=== PATIENT | male | born 1965 ===

== ENCOUNTER 2022-09-11 12:44 | Outpatient (REF) | payer OTHER, SELFPAY ==
--- NOTE | ~2022-09-11 | US_ITS ---
EXAMINATION: US RETROPERITONEAL LIMITED (RENAL ONLY) CLINICAL INFORMATION: Calculus of kidney. COMPARISON: None available. TECHNIQUE: Real-time imaging of the kidneys. FINDINGS: RIGHT KIDNEY: 13.3 x 5.3 x 6.1 cm (SAG x AP x TRV). The kidney is normal in size, contour, and echogenicity. Renal cortical thickness is normal. No hydronephrosis. At the interpolar aspect, an 8 mm nonobstructing calculus is seen. At the lower pole, a 1.1 cm nonobstructing calculus is seen. At the upper pole, a 3.5 cm in maximal diameter anechoic, simple cyst is seen. At the lower pole, a 1.3 center in maximal diameter exophytic, simple cyst is seen. LEFT KIDNEY: 12.7 x 5.8 x 4.5 cm (SAG x AP x TRV). The kidney is normal in size, contour, and echogenicity. Renal cortical thickness is normal. No focal parenchymal lesions or hydronephrosis. At the lower pole, a 6 mm nonobstructing calculus is seen. US/US renal BI IMPRESSION: 1. There are nonobstructing bilateral renal calculi, as detailed. No hydronephrosis is seen. 2. There are right renal benign, simple cysts. These requiring no imaging follow-up.
--- NOTE | ~2022-09-11 | XR_ITS ---
EXAMINATION: XR CHEST CLINICAL INFORMATION: Asthma COMPARISON: None available. TECHNIQUE: 2 views of the chest were obtained. FINDINGS: Clear lungs. No effusion or pneumothorax. Cardiomediastinal silhouette is within normal limits. XR/XR chest 2V IMPRESSION: Clear lungs.
--- NOTE | 2022-09-11 14:24 | PFT_ITS ---
INDICATION: Asthma. SPIROMETRY: FEV1 to FVC of 67% prebronchodilators and 73% post bronchodilators with an FEV1 of 1.78 L, which is 52% predicted and an FVC of 2.44 L, which is 56% predicted. There was a significant response to bronchodilators noted and also significant small airways disease noted. Maximum voluntary ventilation only 39% predicted. LUNG VOLUMES: Total lung capacity 74% predicted with a residual volume 130% predicted. DIFFUSION CAPACITY: DLCO 101% predicted. COMPARISONS: None available. INTERPRETATION: There is an obstructive ventilatory defect that appears to be reversible consistent with his diagnosis of asthma. The patient had significant small airway disease suggesting the severity of his asthma and had a very significant response to bronchodilators noted. The patient also has a severe decrease in the maximum voluntary ventilation secondary to deconditioning and also worsening dynamic inspiratory capacity. Lung volumes do demonstrate significant airtrapping due to the asthma and the small airway disease. Diffusion capacity is within normal limits. Clinical correlation warranted. MD SAMY Mei/MODL / [id number]
== END 2022-09-11 12:45 | disposition home or self-care (01) ==
LOC: HO.RESP 12:44
PROVIDERS: PCP Internal Medicine; Visit Provider Internal Medicine
DX: J45.909 Unspecified asthma, uncomplicated (principal); N20.0 Calculus of kidney
CPT/HCPCS: 71046; 76775; 94060; 94727; 94729

== ENCOUNTER 2023-01-22 12:06 | Outpatient (AMB) | payer OTHER, SELFPAY ==
--- NOTE | 2023-01-22 12:08 | A.OFFVIS_ITS ---
Intake Intake Visit Reasons: Calculus of kidney Intake Note: New Patient presents for initial visit kidney stones Urology Medications: none Blood Thinner: none Commercial Litigation Attorney Required: Yes Accompanied by: Spouse Allergies No Known Allergies Allergy (Verified 01/22/23 20:58) Medication List - Last Reconciled 01/22/23 by NURY Park- albuterol sulfate 90 mcg/actuation (Ventolin HFA) 2 puffs inhalation Q6H PRN clotrimazole 1% 1 appl topical BID 4 weeks fluticasone propion-salmeterol 250-50 mcg/dose (Advair Diskus) 1 inh inhalation BID miconazole nitrate 2% (Zeasorb AF) 1 appl topical BID pyridoxine (vitamin B6) 100 mg PO DAILY 90 days HPI HPI Comments History of Present Illness Details Lorne is a very pleasant 57-year-old Albanian-speaking male patient of Dr. Jin who was accompanied by his significant other at today's visit. He presents to the office today as a new patient for nephrolithiasis. In discussion with the patient today he reports to be doing and feeling well. He reports longstanding history of nephrolithiasis however denies any previous surgical intervention for his nephrolithiasis. Recent renal imaging results reviewed with the patient today. Right kidney no hydronephrosis. At the interpolar aspect, an 8 mm nonobstructing calculus is seen. At the lower pole, a 1.1 cm nonobstructing calculus is seen. At the upper pole, a 3.5 cm in maximal diameter anechoic, simple cyst is seen. At the lower pole, a 1.3 center in maximal diameter exophytic, simple cyst is seen. Left kidney with no lesions or hydronephrosis. At the lower pole a 6 cm nonobstructing calculus is seen. Patient reports having passed a stone last week however did not bring into the office today as he did not collect stone. He discusses being employed at [employer]. When asked he reports to be drinking plenty of water daily. He denies any urination issues at this time. When asked he denies urinary urgency, urinary frequency, incontinence, nocturia, hematuria, dysuria, foul smelling urine, changes to urinary stream, flank pain, fever, and or chills. He is happy with his current voiding parameters. Discussed at length potential causes for nephrolithiasis as well as further nephrolithiasis intervention with CT KUB/KUB and or surgical intervention. However, patient reports longstanding history of left urolithiasis and currently denies pain. Will obtain KUB for further assessment evaluation. Discussed ESWL versus ureteroscopy versus surveillance monitoring. Discussed risks and benefits of all asformentioned interventions/treatment options. In office urinalysis results reviewed with the patient and his significant other today. He otherwise offers no other issues or concerns at this time. [facility] Medical History Closed left ankle fracture Renal calculi Family History Mother No problems noted. Father Diabetes Prostate cancer Sister No problems noted. Social History Housing: House Alcohol intake: current Patient Tobacco Use Status: Never used Tobacco e-Cigarette/Vaping Use: Never Used Second Hand Smoke Exposure: No Current occupational status: employed Cognitive needs: No Hearing needs: No Vision needs: Yes Review of Systems Const All systems reviewed & are unremarkable except as noted in HPI and below and Other Reports as per HPI Eyes Reports no additional complaints ENT Reports no additional complaints Card Reports no additional complaints Resp Reports no additional complaints GI Reports no additional complaints Reports as per HPI Musc Reports no additional complaints Neuro Reports no additional complaints Psych Reports no additional complaints Endo Reports no additional complaints Alek/Lymph Reports no additional complaints Aller/Immun Reports no additional complaints Physical Exam Const General: cooperative, healthy appearing, comfortable, no acute distress, well developed, alert and awake Orientation/consciousness: patient oriented x3 Limitations: no limitations HEENT Head: Yes normal to inspection, Yes normocephalic and Yes atraumatic Ears: hearing grossly normal bilaterally Eyes General: appearance normal, both eyes and all related structures Neck Neck: Yes normal visual inspection and Yes trachea midline Chest Chest palpation & inspection: normal inspection of the chest Resp Effort & Inspection: normal respiratory effort and able to speak in complete sentences Cardio Rate: regular rate GI Inspection: Yes normal to inspection General: Yes no CVA tenderness Back/Spine/Pelvis Back: no CVA tenderness Skin General skin exam: no rashes or lesions noted Neuro General: patient oriented x3 Extrem General: Yes normal to inspection Psych Appearance: grossly normal and well kempt Mental Status: mental status grossly normal Speech and movement: Normal speech and movement present and Clear speech present Affect: normal affect Attitude: cooperative Thought process: Normal thought process present Thought content: Normal thought content present Insight: Good insight present (Psych) Judgement: Good judgement present (Psych) Results AMB Urinalysis, Automated UA Leukoctes 0 Santa/uL Last Edit by RadarChile on 01/22/23 12:20 UA Nitrite Last Edit by RadarChile on 01/22/23 12:20 UA Urobilinogen 0.2 mg/dL Last Edit by RadarChile on 01/22/23 12:20 UA Protein 0 mg/dL Last Edit by RadarChile on 01/22/23 12:20 UA pH 6.0 Last Edit by RadarChile on 01/22/23 12:20 UA Blood 200 Madi/uL Last Edit by RadarChile on 01/22/23 12:20 UA Specific [place] 1.020 Last Edit by RadarChile on 01/22/23 12:20 UA Ketone Last Edit by RadarChile on 01/22/23 12:20 UA Bilirubin 0 mg/dL Last Edit by RadarChile on 01/22/23 12:20 UA Glucose 0 mg/dL Last Edit by RadarChile on 01/22/23 12:20 Results Reviewed Results Reviewed: Laboratory Last Values Urine pH (Auto) 6.0 01/22/23 12:14 Specific [place] (Auto) 1.020 01/22/23 12:14 Urine Protein (Auto) 0 mg/dL 01/22/23 12:14 Glucose (UA)(Auto) 0 mg/dL 01/22/23 12:14 Urine Blood (Auto) 200 Madi/uL 01/22/23 12:14 Urine Bilirubin (Auto) 0 mg/dL 01/22/23 12:14 Urine Urobilinogen (Auto) 0.2 mg/dL 01/22/23 12:14 Leukocyte Esterase (Auto) 0 Santa/uL 01/22/23 12:14 Date of Service: 09/11/22 EXAMINATION: US RETROPERITONEAL LIMITED (RENAL ONLY) FINDINGS: RIGHT KIDNEY: 13.3 x 5.3 x 6.1 cm (SAG x AP x TRV). The kidney is normal in size, contour, and echogenicity. Renal cortical thickness is normal. No hydronephrosis. At the interpolar aspect, an 8 mm nonobstructing calculus is seen. At the lower pole, a 1.1 cm nonobstructing calculus is seen. At the upper pole, a 3.5 cm in maximal diameter anechoic, simple cyst is seen. At the lower pole, a 1.3 center in maximal diameter exophytic, simple cyst is seen. LEFT KIDNEY: 12.7 x 5.8 x 4.5 cm (SAG x AP x TRV). The kidney is normal in size, contour, and echogenicity. Renal cortical thickness is normal. No focal parenchymal lesions or hydronephrosis. At the lower pole, a 6 mm nonobstructing calculus is seen. IMPRESSION: ? 1. There are nonobstructing bilateral renal calculi, as detailed. No hydronephrosis is seen. ? 2. There are right renal benign, simple cysts. These requiring no imaging follow-up. Assessment & Plan Assessment & Plan (1) Renal calculi: Comment: Bilateral September 2022 Code(s): N20.0 - Calculus of kidney (2) Renal cyst: Code(s): N28.1 - Cyst of kidney, acquired Plan In office urinalysis results reviewed with the patient today. Recent renal ultrasound results reviewed with the patient and his significant other today; as noted above. Discussed at length potential causes for nephrolithiasis. Discussed surveillance monitoring versus ESWL versus ureteroscopy; discussed risks and benefits of these interventions at length. Discussed near future nephrolithiasis workup to include blood work and 24 hour urine collection. Patient reports to be happy with current voiding parameters Discussed, educated, and stressed the importance of drinking plenty of water daily. Discussed adding 1 oz of lemon juice to water daily. Start vitamin B6 as discussed and prescribed. Will obtain KUB for further assessment evaluation. Follow-up in 1-2 weeks with imaging to be completed prior; or sooner with any issues, concerns, and or questions. Orders: Orders XR KUB Today N20.0 - Calculus of kidney AMB Urinalysis Automated Today Z13.9 - Encounter for screening, unspecified Medications: New pyridoxine (vitamin B6) 100 mg PO DAILY 90 days 90 tabs 3RF N20.0 - Calculus of kidney Patient Instructions: The patient had an opportunity to ask questions regarding the treatment plan. All questions were answered. Physical exam, labs, and imaging were discussed and reviewed in detail. As well as risks, benefits, and discussion of treatment choices. No major barriers to understanding were identified. The patient expressed understanding and agreement with the above treatment plan. The patient was made aware they should contact our office by phone for worsening of their current condition, the appearance of new symptoms, or with any questions or concerns. Compliance is encouraged with any medications and follow up testing that is ordered. It is a privilege to be allowed the opportunity to participate in? your urological care.? Again, if you have any questions or concerns If you have any questions or concerns please do not hesitate to contact me. The office is [phone]. This note is constructed using voice recognition software. While every effort has been made to ensure accuracy receiver errors may have been included. Yours sincerely, FRANSICO Park Coding Level of Care Code New Pt Level 4 (51328) Diagnoses Renal calculi N20.0 Renal cyst N28.1
== END 2023-01-22 13:46 | disposition home or self-care (01) ==
PROVIDERS: PCP Internal Medicine; Visit Provider Nurse Practitioner Family
DX: N20.0 Calculus of kidney (principal); N28.1 Cyst of kidney, acquired
CPT/HCPCS: 99204

== ENCOUNTER 2023-01-22 12:06 | Outpatient (REF) | payer OTHER, SELFPAY ==
--- NOTE | ~2023-01-22 | XR_ITS ---
EXAMINATION: XR ABDOMEN KUB CLINICAL INDICATION: Kidney stone COMPARISON: Previous renal ultrasound September 2022 TECHNIQUE: AP view of the abdomen. FINDINGS: The bowel gas pattern is normal with no evidence of ileus or obstruction. No unusual soft tissue calcifications are noted. The bones are unremarkable. XR/XR KUB IMPRESSION: No stone seen.
== END 2023-01-22 12:07 | disposition home or self-care (01) ==
LOC: HO.XRAY 12:06
PROVIDERS: PCP Internal Medicine; Visit Provider Nurse Practitioner Family
DX: N20.0 Calculus of kidney (principal); N28.1 Cyst of kidney, acquired
CPT/HCPCS: 74018; 81003

== ENCOUNTER 2023-02-02 14:54 | Outpatient (AMB) | payer OTHER, SELFPAY ==
--- NOTE | 2023-02-02 15:01 | MHC.OFFVIS ---
Intake Intake Visit Reasons: Calculus of kidney- follow up/KUB(SET) Intake Note: Patient presents for follow up visit kidney stones/KUB (imaging 01/22/23) Urology Medications: Vitamin B6 Blood Thinner: none Tree Surgeon Required: Yes Accompanied by: Spouse Allergies No Known Allergies Allergy (Verified 02/02/23 15:30) Medication List - Last Reconciled 02/02/23 by AISHA ParkP-ALEJANDRA albuterol sulfate 90 mcg/actuation (Ventolin HFA) 2 puffs inhalation Q6H PRN clotrimazole 1% 1 appl topical BID 4 weeks fluticasone propion-salmeterol 250-50 mcg/dose (Advair Diskus) 1 inh inhalation BID miconazole nitrate 2% (Zeasorb AF) 1 appl topical BID pyridoxine (vitamin B6) 100 mg PO DAILY 90 days HPI HPI Comments History of Present Illness Details Lorne is a very pleasant 57-year-old Amharic-speaking male patient of Dr. Jin who was accompanied by his significant other at today's visit. He presents to the office today for follow-up. Of note, patient was seen approximately 2 weeks ago as a new patient for nephrolithiasis at which time a KUB was ordered for further assessment evaluation. These results were reviewed with the patient and his significant other today. No stones noted. Discussed likelihood of stones being uric in nature as KUB noting no stones and patient with previous renal ultrasound results showing right kidney no hydronephrosis. At the interpolar aspect, an 8 mm nonobstructing calculus is seen. At the lower pole, a 1.1 cm nonobstructing calculus is seen. At the upper pole, a 3.5 cm in maximal diameter anechoic, simple cyst is seen. At the lower pole, a 1.3 center in maximal diameter exophytic, simple cyst is seen. Left kidney with no lesions or hydronephrosis. At the lower pole a 6 cm nonobstructing calculus is seen. Discussed obtaining CT KUB for further assessment versus surveillance monitoring at length. He denies any urination issues at this time. When asked he denies urinary urgency, urinary frequency, incontinence, nocturia, hematuria, dysuria, foul smelling urine, changes to urinary stream, flank pain, fever, and or chills. He is happy with his current voiding parameters. Discussed at length potential causes for nephrolithiasis as well as further nephrolithiasis intervention with CT KUB for possible surgical intervention However, patient reports he will continue with surveillance imaging. In office urinalysis results reviewed with the patient and his significant other today. He otherwise offers no other issues or concerns at this time. [facility] Medical History Closed left ankle fracture Renal calculi Family History Mother No problems noted. Father Diabetes Prostate cancer Sister No problems noted. Social History Housing: House Alcohol intake: current Patient Tobacco Use Status: Never used Tobacco e-Cigarette/Vaping Use: Never Used Second Hand Smoke Exposure: No Current occupational status: employed Cognitive needs: No Hearing needs: No Vision needs: Yes Review of Systems Const All systems reviewed & are unremarkable except as noted in HPI and below and Other Reports as per HPI Eyes Reports no additional complaints ENT Reports no additional complaints Card Reports no additional complaints Resp Reports no additional complaints GI Reports no additional complaints Reports as per HPI Musc Reports no additional complaints Neuro Reports no additional complaints Psych Reports no additional complaints Endo Reports no additional complaints Alek/Lymph Reports no additional complaints Aller/Immun Reports no additional complaints Physical Exam Const General: cooperative, healthy appearing, comfortable, no acute distress, well developed, alert and awake Orientation/consciousness: patient oriented x3 Limitations: no limitations HEENT Head: Yes normal to inspection, Yes normocephalic and Yes atraumatic Ears: hearing grossly normal bilaterally Eyes General: appearance normal, both eyes and all related structures Neck Neck: Yes normal visual inspection and Yes trachea midline Chest Chest palpation & inspection: normal inspection of the chest Resp Effort & Inspection: normal respiratory effort and able to speak in complete sentences Cardio Rate: regular rate GI Inspection: Yes normal to inspection General: Yes no CVA tenderness Back/Spine/Pelvis Back: no CVA tenderness Skin General skin exam: no rashes or lesions noted Neuro General: patient oriented x3 Extrem General: Yes normal to inspection Psych Appearance: grossly normal and well kempt Mental Status: mental status grossly normal Speech and movement: Normal speech and movement present and Clear speech present Affect: normal affect Attitude: cooperative Thought process: Normal thought process present Thought content: Normal thought content present Insight: Good insight present (Psych) Judgement: Good judgement present (Psych) Results AMB Urinalysis, Automated UA Leukoctes 0 Santa/uL Last Edit by Erlinda Bridges on 02/02/23 15:24 UA Nitrite Last Edit by Erlinda Bridges on 02/02/23 15:24 UA Urobilinogen 0.2 mg/dL Last Edit by Erlinda Bridges on 02/02/23 15:24 UA Protein 15 mg/dL Last Edit by Erlinda Bridges on 02/02/23 15:24 UA pH 6.5 Last Edit by Erlinda Bridges on 02/02/23 15:24 UA Blood 25 Madi/uL Last Edit by Erlinda Bridges on 02/02/23 15:24 UA Specific [place] 1.015 Last Edit by Erlinda Bridges on 02/02/23 15:24 UA Ketone Negative Last Edit by Erlinda Bridges on 02/02/23 15:24 UA Bilirubin 0 mg/dL Last Edit by Erlinda Bridges on 02/02/23 15:24 UA Glucose 0 mg/dL Last Edit by Erlinda Bridges on 02/02/23 15:24 Results Reviewed Results Reviewed: Laboratory Last Values Urine pH (Auto) 6.5 02/02/23 15:05 Specific [place] (Auto) 1.015 02/02/23 15:05 Urine Protein (Auto) 15 mg/dL 02/02/23 15:05 Glucose (UA)(Auto) 0 mg/dL 02/02/23 15:05 Urine Ketones (Auto) Negative 02/02/23 15:05 Urine Blood (Auto) 25 Madi/uL 02/02/23 15:05 Urine Bilirubin (Auto) 0 mg/dL 02/02/23 15:05 Urine Urobilinogen (Auto) 0.2 mg/dL 02/02/23 15:05 Leukocyte Esterase (Auto) 0 Santa/uL 02/02/23 15:05 Date of Service: 01/22/23 EXAMINATION: XR ABDOMEN KUB FINDINGS: The bowel gas pattern is normal with no evidence of ileus or obstruction. No unusual soft tissue calcifications are noted. The bones are unremarkable. IMPRESSION: No stone seen. Assessment & Plan Assessment & Plan (1) Renal calculi: Comment: Bilateral September 2022 Code(s): N20.0 - Calculus of kidney (2) Renal cyst: Code(s): N28.1 - Cyst of kidney, acquired Plan In office urinalysis results reviewed with the patient today; as noted above. Recent KUB results reviewed with the patient today; as noted above. Discussed at length possible uric stones as KUB noting no stones Discussed further assessment with CT KUB for further assessment evaluation and possible initiation of potassium citrate if stones are uric in nature. Discussed at length importance of drinking plenty of water daily. Patient denies any bothersome urinary issues or concerns at this time. Will continue with surveillance imaging. CT KUB in 6 months. Will obtain PSA for further assessment evaluation. Follow-up in 6 months with imaging to be completed prior; or sooner with any issues, concerns, and or questions. Orders: Orders Prostate Specific Antigen Scr 08/17/22 N40.0 - Benign prostatic hyperplasia without lower urinary tract symptoms CT kidney stone 6 Months N20.0 - Calculus of kidney AMB Urinalysis Automated 02/02/23 Z13.9 - Encounter for screening, unspecified Patient Instructions: The patient had an opportunity to ask questions regarding the treatment plan. All questions were answered. Physical exam, labs, and imaging were discussed and reviewed in detail. As well as risks, benefits, and discussion of treatment choices. No major barriers to understanding were identified. The patient expressed understanding and agreement with the above treatment plan. The patient was made aware they should contact our office by phone for worsening of their current condition, the appearance of new symptoms, or with any questions or concerns. Compliance is encouraged with any medications and follow up testing that is ordered. It is a privilege to be allowed the opportunity to participate in? your urological care.? Again, if you have any questions or concerns If you have any questions or concerns please do not hesitate to contact me. The office is [phone]. This note is constructed using voice recognition software. While every effort has been made to ensure accuracy air quality manager errors may have been included. Yours sincerely, FRANSICO Park Coding Level of Care Code Est Pt Level 3 (16361) Diagnoses Renal calculi N20.0 Renal cyst N28.1
== END 2023-02-02 15:42 | disposition home or self-care (01) ==
PROVIDERS: PCP Internal Medicine; Visit Provider Nurse Practitioner Family
DX: Z13.9 Encounter for screening, unspecified (principal)
CPT/HCPCS: 99213

== ENCOUNTER → 2023-02-02 14:54 | Outpatient (BNVA) | payer OTHER, SELFPAY | PROVIDERS: PCP Internal Medicine; Visit Provider Nurse Practitioner Family | DX: N20.0 Calculus of kidney (principal); N28.1 Cyst of kidney, acquired | CPT/HCPCS: 81003 ==

== ENCOUNTER 2023-02-27 11:09 | Outpatient (AMB) | payer OTHER, SELFPAY ==
[2023-02-27 11:12] VITALS: BP 129/77; BMI 34.5
--- NOTE | 2023-02-27 11:12 | A.OFFVIS_ITS ---
Intake Vital Signs 02/27/23 11:12 Height 5 ft 6 in Weight 213 lb 13.574 oz BMI 34.5 BP 129/77 Blood Pressure Location Lt brachial Position Sitting Intake Visit Reasons: Colonoscopy Screening Intake Note: Patient presents to in office visit today as a new patient for colonoscopy screening. CC: Patient reports occasional heartburn, he takes Tums for symptoms and this helps per PT. Occasional loose stools if eating greasy foods. Denies other GI symptoms. Winch Operator Required: Yes Winch Operator Name: Accompanied by: Spouse Allergies No Known Allergies Allergy (Verified 02/27/23 11:16) HPI Colonoscopy Screening HPI Details 57 year old? male with past medical hist ory of asthma, renal calculi is here today for pre colonoscopy screening.? Patient was sent to us by his PCP.? This is his first colonoscopy screening.? Patient denies any gastrointestinal symptoms in the past or at present.? Occasional symptoms of acid reflux depending on what he eats. Patient reports that sometimes he will take Tums and his symptoms go away. Patient reports occasional loose stools if he eats something fried or greasy. Otherwise patient moves his bowels regularly. Denies any personal or family history of gastrointestinal disease, colon polyps, or cancer.? Patient never was under anesthesia before.? Negative for history of sleep apnea.? Denies any history of cardiac, renal, pulmonary, or hepatic disease.?? No history of infectious? diseases like hepatitis A, B, C, HIV or tuberculosis.? Patient is not on any anticoagulation therapy. FOR[facility]LY [facility], [facility] Medical History Renal calculi Closed left ankle fracture Family History Mother No problems noted. Father Diabetes Prostate cancer Sister No problems noted. Father Prostate cancer Social History Housing: House Alcohol intake: current Patient Tobacco Use Status: Never used Tobacco e-Cigarette/Vaping Use: Never Used Second Hand Smoke Exposure: No Current occupational status: employed Cognitive needs: No Hearing needs: No Vision needs: Yes Physical Exam Vital Signs: Last Vital Signs BP 129/77 02/27/23 11:12 BMI result Body Mass Index 34.5 Assessment & Plan Assessment & Plan (1) GERD (gastroesophageal reflux disease): Code(s): K21.9 - Gastro-esophageal reflux disease without esophagitis Qualifiers: Esophagitis presence: esophagitis presence not specified Qualified Code(s): K21.9 - Gastro-esophageal reflux disease without esophagitis Plan: Occasional acid reflux without dyspepsia, dysphagia or odynophagia. Patient was encouraged to avoid dietary triggers and late night snacking. Staying upright for minimal 3 hours after meals discussed with patient. Patient reports that his symptoms are only if he eats something spicy. (2) Postprandial diarrhea: Code(s): K52.9 - Noninfective gastroenteritis and colitis, unspecified Plan: Occasional postprandial loose stools depending on what he eats. Patient reports that if he eats something fried sometimes he will have loose stools. Otherwise he is moving his bowels better. Avoid dietary triggers discussed with patient (3) Colon cancer screening: Code(s): Z12.11 - Encounter for screening for malignant neoplasm of colon Plan: Patient denies any cardiac or respiratory symptoms.? However patient has mild inspiratory and expiratory wheeze. He reports that he does not take Advair every day. Patient was instructed to take Advair every day and follow-up with PCP. Patient had pulmonary function test in September. Never had anesthesia in the past. Denies any history of sleep apnea.? No history of infectious diseases in the past or present.? Not on any anticoagulation therapy.? No family or personal history of colon cancer or polyps.? Patient denies melena, hematochezia, unintentional weight loss or ribbon like stools.? Discussed at length the pre- procedure,? prep, diet & medications as well as what to expect prior, during and after the procedure.?? Stressed the importance of good bowel prep. ?Recommended the use of Vaseline or Calmoseptine OTC & baby wipes with bowel movements to promote comfort.? ?Patient verbalizes understanding and agrees to plan of care.? He was given the opportunity to ask questions and all questions answered.? We will see him after the procedure.? Medications: New bisacodyl (Dulcolax (bisacodyl)) take 2 tabs at noon the day before your colonoscopy 10 mg (2 x 5 mg) PO ONCE 1 day 2 tabs 0RF Z12.11 - Encounter for screening for malignant neoplasm of colon polyethylene glycol 3350 (Miralax) As directed by gastroenterology department at [facility] 238 grams PO ONCE 238 grams 0RF Z12.11 - Encounter for screening for malignant neoplasm of colon Coding Level of Care Code New Pt Level 3 (57821) Diagnoses Gastroesophageal reflux disease, unspecified whether esophagitis present K21.9 Esophagitis presence: esophagitis presence not specified Postprandial diarrhea K52.9 Colon cancer screening Z12.11 Time Spent (min) 40 Comment 30 minutes spent with patient and additional 10 minutes spent reviewing his records
== END 2023-02-27 11:56 | disposition home or self-care (01) ==
PROVIDERS: PCP Internal Medicine; Visit Provider Nurse Practitioner Family
DX: K21.9 Gastro-esophageal reflux disease without esophagitis (principal); K52.9 Noninfective gastroenteritis and colitis, unspecified; Z12.11 Encounter for screening for malignant neoplasm of colon
CPT/HCPCS: 99203

== ENCOUNTER → 2023-02-27 11:09 | Outpatient (BNVA) | payer OTHER, SELFPAY | PROVIDERS: PCP Internal Medicine; Visit Provider Nurse Practitioner Family ==

== ENCOUNTER 2023-08-01 16:29 | Outpatient (REF) | payer OTHER, SELFPAY ==
--- NOTE | ~2023-08-01 | CT_ITS ---
EXAMINATION: CT KIDNEY STONE CLINICAL INFORMATION: Renal calculus. COMPARISON: KUB dated 01/22/2023; renal ultrasound dated 09/11/2022. TECHNIQUE: Multidetector volumetric imaging was performed from the superior aspect of the liver through the pubic symphysis. Sagittal and coronal reformatted images were obtained on the technologist's workstation. This CT examination was performed using dose optimization techniques as appropriate, variously including the following: *Automated exposure control *Adjustment of mA and/or kV according to patient size (this includes techniques or standardized protocols for targeted exams where dose is matched to indication/reason for exam; i.e. extremities or head) *Use of iterative reconstruction technique DLP: I 65 mGy-cm FINDINGS: LUNG BASES: There is mild bibasilar linear scar/subsegmental atelectasis. LIVER, GALLBLADDER, AND BILIARY TREE: The liver is normal in size, shape, and attenuation. There are 5 low-attenuation hepatic probable cysts, some too small for full characterization with CT (4:68, 82, 83 and 165). The largest is situated within the left hepatic lobe laterally, measuring 2.8 cm with a postcontrast Hounsfield value of 12.7 units (4:86). No biliary ductal dilatation is present. The gallbladder is unremarkable with no evidence of radiopaque gallstones, gallbladder wall thickening, or obvious pericholecystic inflammatory changes. PANCREAS: Unremarkable. SPLEEN: Unremarkable. ADRENAL GLANDS: Unremarkable. KIDNEYS AND URETERS: The kidneys are normal in size and shape. 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 At the lower pole of the right kidney (3:31), a 7 mm nonobstructing calculus is seen. At the upper pole the right kidney (3:18), a 6 mm nonobstructing calculus is seen. At the lower pole of the right kidney (3:22), a 4 mm nonobstructing calculus is seen. There are a few further 1 mm nonobstructing left renal calculi. No ureteric calculus or hydronephroureter is seen bilaterally. No perinephric stranding. At the upper pole of the right kidney (3:80), a 3.8 cm benign, simple cyst is seen, with postcontrast Hounsfield value of 2.3 units. At the interpolar right kidney (3:22), a 1.4 cm cyst is seen, with precontrast Hounsfield value of 7.7 units. At the lower pole of the right kidney (3:28), a 9 mm exophytic benign, simple cyst is seen, with precontrast Hounsfield value of 3.7 units. These cysts require no imaging follow-up. BLADDER: Unremarkable. GASTROINTESTINAL TRACT: The small and large bowel are unremarkable. The appendix is unremarkable. ABDOMINAL WALL: There is a very small fat-containing umbilical hernia. LYMPH NODES: Normal. VASCULAR: Unremarkable. PELVIC VISCERA: The prostate and seminal vesicles are unremarkable. OSSEOUS STRUCTURES: There is marked anterior endplate arthropathy at T10-T11 and T11-T12. No acute or aggressive osseous finding is noted. CT/CT kidney stone IMPRESSION: 1. There are nonobstructing bilateral renal calculi, as detailed. No ureteric calculus is seen. There is no obstructive uropathy. The urinary bladder is unremarkable. 2. There is increase in echogenicity of bilateral medullary pyramids, which can be seen in association with medullary nephrocalcinosis. 3. No urinary mass is seen. 4. There is a very small fat-containing umbilical hernia. 5. There is marked anterior endplate arthropathy at T10-T11 and T11-T12. No aggressive osseous lesion is seen. Fleischner guidelines were followed.
== END 2023-08-01 16:30 | disposition home or self-care (01) ==
LOC: HO.CT 16:29
PROVIDERS: PCP Internal Medicine; Visit Provider Nurse Practitioner Family
DX: N20.0 Calculus of kidney (principal)
CPT/HCPCS: 74176

== ENCOUNTER 2023-08-08 09:06 | Day surgery (SDC) | payer OTHER, SELFPAY ==
--- NOTE | 2023-08-07 09:54 | HO.ANESPROP2 ---
Documented by User: Bernie Scott NP 08/07/23 09:54 HPI - Anesthesia Eval Consult details Narrative: 57yo M for Colonoscopy FOR[facility]LY [facility] Active Problems Active Problems: All Active Problems (Updated 01/22/23 @ 21:00 by Ifeoma Gonzales [facility]) Renal cyst (Acute) Tinea cruris (Acute) Annual physical exam (Acute) Renal calculi (Acute) Asthma (Acute) Colon cancer screening (Acute) Obesity (BMI 30-39.9) (Acute) Past Medical History Medical History (Updated 08/07/23 @ 12:05 by Summer Ward, ALLEGRA) Asthma Renal calculi Closed left ankle fracture Family History Family History Mother No problems noted. Father Diabetes Prostate cancer Sister No problems noted. Father Prostate cancer Social History Social History Housing: House Alcohol intake: current Alcohol intake frequency: holidays/special occasions only Patient Tobacco Use Status: Never used Tobacco e-Cigarette/Vaping Use: Never Used Second Hand Smoke Exposure: No Use of substances other than those prescribed or required for medical reasons: No Are you DNR?: No Advance Directives: No Advance Directives Information Provided: Yes Current occupational status: employed Cognitive needs: No Hearing needs: No Vision needs: Yes Meds Allergies Allergy/AdvReac Type Severity Reaction Status Date / Time No Known Allergies Allergy Verified 02/27/23 11:16 Assessment and Plan Assessment Anesthesia Assessment: Chart Reviewed Documented by User: Diana Dominguez MD 08/08/23 10:28 [facility] Past Medical History Medical History (Updated 08/07/23 @ 12:05 by Summer Ward RN) Asthma Renal calculi Closed left ankle fracture Family History Family History Mother No problems noted. Father Diabetes Prostate cancer Sister No problems noted. Father Prostate cancer Family history of problems with anesthesia: No Surgical History History of Problems with Anesthesia: No Social History Social History Housing: House Alcohol intake: current Alcohol intake frequency: holidays/special occasions only Patient Tobacco Use Status: Never used Tobacco e-Cigarette/Vaping Use: Never Used Second Hand Smoke Exposure: No Use of substances other than those prescribed or required for medical reasons: No Are you DNR?: No Advance Directives: No Advance Directives Information Provided: Yes Current occupational status: employed Cognitive needs: No Hearing needs: No Vision needs: Yes Meds Allergies Allergy/AdvReac Type Severity Reaction Status Date / Time No Known Allergies Allergy Verified 02/27/23 11:16 Exam Airway Mallampati Class: II TM Dist: >3cm Neck ROM: Full Heart: rrr Lungs: cta Assessment and Plan Assessment Anesthesia Assessment: Anesthesia Plan Discussed Final Anesthetic Review Family History of Problems with Anesthesia: No History of Problems with Anesthesia: No NPO: Yes ASA Class: II Final Preanesthetic Review: No Changes in Pt Med Stat, Meds/Allgs Chart Reviewed and Consent Obtained/Reviewed Patient Risk: Low Procedure Risk: Low Anesthetic Plan Anesthetic Plan: MAC: Disposition: Standard PACU
[2023-08-08 09:46] VITALS: BMI 41.4
[2023-08-08 09:53] VITALS: BMI 33.2
[2023-08-08 09:55] VITALS: BP 141/78; PULSE 100; RESP 18; TEMP 37.2; O2SAT 95
[2023-08-08] MEDS: Albuterol Sulfate (0.083%) 2.5 MG/3 ML VIAL.NEB INHALE (10:16)
--- NOTE | 2023-08-08 10:33 | MHC.SHP ---
Pre-Procedural Eval Section A - 24 Hr Update-Section A only Date of Service: 08/08/23 Section B - Complete if H&P > 30 days Chief Complaint: screening Relevant Family History (Specify if Yes): No Relevant Social History: None Present Medications: see Short Stay Collaborative assessment Medical History: Significant History (Asthma Renal calculi Closed left ankle fracture) History of Previous Operations: Relevant previous surgery/procedure and date(s) Allergies: Allergies Allergy/AdvReac Type Severity Reaction Status Date / Time No Known Allergies Allergy Verified 02/27/23 11:16 Review of Systems Sugical H&P ROS: Negative: Constitution, Cardiovascular, Respiratory, Neurological, Psychiatric, Hem-Onc, Allergic/Immunologic, Gastrointestinal, Genitourinary, Musculoskeletal, Integumentary, Endocrine and Eyes/Ears/Nose/Throat Exam Surgical H&P Exam: Normal: HEENT, Normal: Heart, Normal: Lungs, Normal: Extremities, Normal: Abdomen, Normal: Skin and Normal: Neurological Plan Diagnosis/Plan: Unchanged I have reviewed the history and physical and performed a pertinent physical examination on my patient. No changes have occurred unless specified. Time Spent With Patient Time: Total time managing care of this patient today ____ minutes.
--- NOTE | 2023-08-08 10:34 | P.OP_ITS ---
Operative Note Operative Note Date of Service: 08/08/23 Narrative: Operative Information Procedure Description: Colonoscopy Indication: screening Anesthesia: MAC COLONOSCOPY Instrument: Olympus variable stiffness pediatric scope 190L Colonoscopy Monitoring: Vital signs and clinical assessment, continuous EKG monitoring, Pulse oximetry, Carbon Dioxide monitoring and blood pressure monitoring were done throughout the procedure. Colon withdrawal time was 15 minutes. Procedure: The patient was placed in the left lateral decubitis position and pre-procedure medications were administered. After a digital rectal examination of the ano-rectum, the video colonoscope was inserted into the rectum and advanced through the colon to the cecum/TI. The colonoscope was slowly withdrawn in a retrograde panoramic fashion and the colon mucosa was carefully examined including a retroflexed view of the rectum. Findings and interventions are described below. Procedure Difficulty: moderate Findings: Terminal Ileum-not intubated due to looping Cecum: 3-5 mm sessile polyp removed with cold forceps, 14-15 mm sessile polyp injected with 3-4 ml of eleview and removed with cold snare, 10 mm sessile polyp removed with cold snare Ascending Colon: normal Transverse Colon -normal Descending Colon:normal Sigmoid Colon: normal Rectum: Retroflexion with small internal hemorrhoids seen, grade I Anorectum - normal Colon preparation: [place] Bowel Preparation Scale Right colon; 1-2 Transverse colon: 2 Left colon; 2 (0 = Unprepared colon segment with mucosa not seen due to solid stool that cannot be cleared. 1 = Portion of mucosa of the colon segment seen, but other areas of the colon segment not well seen due to staining, residual stool and/or opaque liquid. 2 = Minor amount of residual staining, small fragments of stool and/or opaque liquid, but mucosa of colon segment seen well. 3 = Entire mucosa of colon segment seen well with no residual staining, small fragments of stool or opaque liquid) Impression and Post Procedure Diagnosis: colon polyps internal hemorrhoids Plan: High fiber diet leaflet Avoid straining at stool, epsom salts and sitz bath, anusol supps or cream Repeat Colonoscopy in 1-2 years due to polyps and fair prep or earlier if clinically indicated Above findings were reviewed with the patient and relevant handouts were provided if indicated.
[2023-08-08] MEDS: Lactated Ringers 1,000 ML 100 ML IVCONT (10:37)
[2023-08-08 11:45] VITALS: BP 102/62; PULSE 94; RESP 16; TEMP 36.6; O2SAT 94
[2023-08-08 12:00] VITALS: BP 102/62; PULSE 90; RESP 16; O2SAT 96
[2023-08-08 12:15] VITALS: BP 119/69; PULSE 85; RESP 17; TEMP 36.6; O2SAT 96
== END 2023-08-08 12:59 | disposition home or self-care (01) ==
PROVIDERS: PCP Internal Medicine; Visit Provider Internal Medicine Gastroenterology
PROC: 0DJD8ZZ Inspection of Lower Intestinal Tract, Via Natural or Artificial Opening Endoscopic (ICD-10-PCS; CPT 45378; principal; 2023-08-08 10:50)
DX: Z12.11 Encounter for screening for malignant neoplasm of colon (principal); D12.0 Benign neoplasm of cecum; K64.0 First degree hemorrhoids; K21.9 Gastro-esophageal reflux disease without esophagitis; K52.9 Noninfective gastroenteritis and colitis, unspecified; J45.909 Unspecified asthma, uncomplicated; Z87.442 Personal history of urinary calculi
CPT/HCPCS: 45385; 45380; 45381; 88305; J2704

== ENCOUNTER → 2023-08-08 09:06 | Outpatient (BNV) | payer OTHER, SELFPAY | PROVIDERS: PCP Internal Medicine; Visit Provider Internal Medicine Gastroenterology | DX: Z12.11 Encounter for screening for malignant neoplasm of colon (principal); K63.5 Polyp of colon; K64.8 Other hemorrhoids | CPT/HCPCS: 45380; 45381; 45385 ==

== ENCOUNTER 2023-08-22 12:15 | Outpatient (AMB) | payer OTHER, SELFPAY ==
--- NOTE | 2023-08-22 12:19 | MHC.OFFVIS ---
Intake Vital Signs 08/22/23 12:22 Height 5 ft 7 in Weight 208 lb BMI 32.6 BP 129/77 Blood Pressure Location Lt brachial Position Sitting Pulse 63 Intake Visit Reasons: s/p colon Intake Note: Patient follow up for Colonoscopy results. Patient cc: constipation on and off, denies any other GI issues. Wheel Presser Required: No Accompanied by: Spouse Allergies No Known Allergies Allergy (Verified 08/22/23 12:19) HPI s/p colon HPI Details LAST VISIT GERD (gastroesophageal reflux disease) Occasional acid reflux without dyspepsia, dysphagia or odynophagia. Patient was encouraged to avoid dietary triggers and late night snacking. Staying upright for minimal 3 hours after meals discussed with patient. Patient reports that his symptoms are only if he eats something spicy. Postprandial diarrhea Occasional postprandial loose stools depending on what he eats. Patient reports that if he eats something fried sometimes he will have loose stools. Otherwise he is moving his bowels better. Avoid dietary triggers discussed with patient Colon cancer screening Patient denies any cardiac or respiratory symptoms.? However patient has mild inspiratory and expiratory wheeze. He reports that he does not take Advair every day. Patient was instructed to take Advair every day and follow-up with PCP. Patient had pulmonary function test in September. Never had anesthesia in the past. Denies any history of sleep apnea.? No history of infectious diseases in the past or present.? Not on any anticoagulation therapy.? No family or personal history of colon cancer or polyps.? Patient denies melena, hematochezia, unintentional weight loss or ribbon like stools.? Discussed at length the pre-procedure,? prep, diet & medications as well as what to expect prior, during and after the procedure.?? Stressed the importance of good bowel prep. ?Recommended the use of Vaseline or Calmoseptine OTC & baby wipes with bowel movements to promote comfort.? ?Patient verbalizes understanding and agrees to plan of care.? He was given the opportunity to ask questions and all questions answered.? We will see him after the procedure.? Plan Medications New bisacodyl (Dulcolax (bisacodyl)) take 2 tabs at noon the day before your colonoscopy 10 mg (2 x 5 mg) PO ONCE 1 day 2 tabs 0RF Z12.11 polyethylene glycol 3350 (Miralax) As directed by gastroenterology department at [facility] 238 grams PO ONCE 238 grams 0RF Z12.11 COLONOSCOPY Findings: Terminal Ileum-not intubated due to looping Cecum: 3-5 mm sessile polyp removed with cold forceps, 14-15 mm sessile polyp injected with 3-4 ml of eleview and removed with cold snare, 10 mm sessile polyp removed with cold snare Ascending Colon: normal Transverse Colon -normal Descending Colon:normal Sigmoid Colon: normal Rectum: Retroflexion with small internal hemorrhoids seen, grade I Anorectum - normal Colon preparation: [place] Bowel Preparation Scale Right colon; 1-2 Transverse colon: 2 Left colon; 2 (0 = Unprepared colon segment with mucosa not seen due to solid stool that cannot be cleared. 1 = Portion of mucosa of the colon segment seen, but other areas of the colon segment not well seen due to staining, residual stool and/or opaque liquid. 2 = Minor amount of residual staining, small fragments of stool and/or opaque liquid, but mucosa of colon segment seen well. 3 = Entire mucosa of colon segment seen well with no residual staining, small fragments of stool or opaque liquid) Impression and Post Procedure Diagnosis: colon polyps internal hemorrhoids Plan: High fiber diet leaflet Avoid straining at stool, epsom salts and sitz bath, anusol supps or cream Repeat Colonoscopy in 1-2 years due to polyps and fair prep or earlier if clinically indicated PATHOLOGY RESULTS Diagnosis Cecum, polypectomies: Fragments of tubular adenomata; negative for high-grade dysplasia or carcinoma. TODAY'S VISIT: Patient is here today for follow-up and to discuss colonoscopy results. Patient reports to have no ill effects from the prep, anesthesia or procedure itself. Patient reports to be feeling well except for constipation. Colonoscopy results and biopsy results discussed with patient. Fragments of tubular adenoma without high-grade dysplasia or carcinoma found. However patient did have suboptimal prep will need to repeat colonoscopy in 1-2 years. Patient denies melena, hematochezia, unintentional weight loss or ribbon like stools. Patient denies any dyspepsia, dysphagia or odynophagia. [facility] Medical History (Updated 08/31/23 @ 21:11 by Marcia Hoang [facility]) Tubular adenoma of colon Asthma Renal calculi Closed left ankle fracture Family History Mother No problems noted. Father Diabetes Prostate cancer Sister No problems noted. Father Prostate cancer Social History Housing: House Alcohol intake: current Alcohol intake frequency: holidays/special occasions only Patient Tobacco Use Status: Never used Tobacco e-Cigarette/Vaping Use: Never Used Second Hand Smoke Exposure: No Current occupational status: employed Cognitive needs: No Hearing needs: No Vision needs: Yes Review of Systems Const Denies weight gain and Denies weight loss ENT Reports no additional complaints, Denies dysphagia and Denies odynophagia Card Reports no additional complaints Resp Reports no additional complaints GI Denies abdominal pain, Denies belching, Denies melena, Denies bloating, Denies change in bowel habits, Reports constipation, Denies dysphagia, Denies excessive flatus, Denies dyspepsia, Denies heartburn, Denies diarrhea, Denies loose stools, Denies nausea, Denies odynophagia and Denies vomiting Reports no additional complaints Musc Reports no additional complaints Neuro Reports no additional complaints Psych Reports no additional complaints Endo Reports no additional complaints Physical Exam Vital Signs: Last Vital Signs Pulse 63 08/22/23 12:22 BP 129/77 08/22/23 12:22 BMI result Body Mass Index 32.6 Const General: healthy appearing and no acute distress Nutritional Appearance: obese Orientation/consciousness: patient oriented x3 Resp Effort & Inspection: normal respiratory effort, able to speak in complete sentences, no tracheal deviation and symmetric chest movement Auscultation: clear to auscultation bilaterally Cardio Rate: regular rate GI Inspection: Yes normal to inspection, No distended and Yes obesity Palpation (GI): Soft to palpation, not firm, nontender and No hepatosplenomegaly present Auscultation: normal bowel sounds General: Yes no CVA tenderness Back/Spine/Pelvis Back: no CVA tenderness Skin General skin exam: elasticity normal, turgor normal and dry skin Neuro General: patient oriented x3 Psych Appearance: grossly normal Mental Status: mental status grossly normal Assessment & Plan Assessment & Plan (1) Tubular adenoma of colon: Code(s): D12.6 - Benign neoplasm of colon, unspecified (2) Constipation: Code(s): K59.00 - Constipation, unspecified Qualifiers: Constipation type: slow transit constipation Qualified Code(s): K59.01 - Slow transit constipation (3) Status post colonoscopy: Code(s): Z98.890 - Other specified postprocedural states Plan Tubular adenoma without high-grade dysplasia or carcinoma found. Patient will need to repeat colonoscopy in 1-2 years. Patient will start taking Dulcolax daily. Patient will call the office if he will continue to be constipated. Patient denies any other GI concerning symptoms. Patient will return to the office in 8 months to discuss going for repeat colonoscopy. He is agreeable to this plan and verbalizes understanding of instructions. He was given the opportunity to ask questions and all questions answered. Thank you for allowing me to participate in his care Medications: New bisacodyl (Dulcolax (bisacodyl)) 10 mg (2 x 5 mg) PO BEDTIME 180 tabs 4RF Coding Level of Care Code Est Pt Level 3 (65067) Diagnoses Tubular adenoma of colon D12.6 Slow transit constipation K59.01 Constipation type: slow transit constipation Status post colonoscopy Z98.890 Time Spent (min) 30 Comment 20 minutes spent with patient and additional 10 minutes spent reviewing his records
[2023-08-22 12:22] VITALS: BP 129/77; PULSE 63; BMI 32.6
== END 2023-08-22 12:45 | disposition home or self-care (01) ==
PROVIDERS: PCP Internal Medicine; Visit Provider Nurse Practitioner Family
DX: D12.6 Benign neoplasm of colon, unspecified (principal); K59.01 Slow transit constipation; Z98.890 Other specified postprocedural states
CPT/HCPCS: 99213

== ENCOUNTER → 2023-08-22 12:15 | Outpatient (BNVA) | payer OTHER, SELFPAY | PROVIDERS: PCP Internal Medicine; Visit Provider Nurse Practitioner Family ==

== ENCOUNTER 2023-09-08 07:20 | Outpatient (REF) | payer OTHER, SELFPAY ==
[2023-09-08 08:54] LABS: Prostate Specific Antigen 0.25 ng/mL (<0.05-4.0)
== END 2023-09-08 07:21 | disposition home or self-care (01) ==
LOC: HO.LAB 07:20
PROVIDERS: PCP Internal Medicine; Visit Provider Nurse Practitioner Family
DX: Z12.5 Encounter for screening for malignant neoplasm of prostate (principal)
CPT/HCPCS: 36415; 84153

== ENCOUNTER 2023-09-10 14:31 | Outpatient (AMB) | payer OTHER, SELFPAY ==
--- NOTE | 2023-09-10 14:54 | MHC.OFFVIS ---
Intake Intake Visit Reasons: 6m/US/PSA Intake Note: Patient presents today for follow up visit kidney stone, psa and ultrasound results Imagin08/01/23 PSA: 0.25 Urology Medications: Vitamin B6 Blood Thinner: none [employer] Internship Required: Yes Accompanied by: Spouse Allergies No Known Allergies Allergy (Verified 09/10/23 20:40) Medication List - Last Reconciled 09/10/23 by FRANSICO Park albuterol sulfate 90 mcg/actuation (Ventolin HFA) 2 puffs inhalation Q6H PRN bisacodyl (Dulcolax (bisacodyl)) 10 mg (2 x 5 mg) PO BEDTIME clotrimazole 1% 1 appl topical BID 4 weeks fluticasone propion-salmeterol 250-50 mcg/dose (Advair Diskus) 1 inh inhalation BID miconazole nitrate 2% (Zeasorb AF) 1 appl topical BID pyridoxine (vitamin B6) 100 mg PO DAILY 90 days HPI HPI Comments History of Present Illness Details Lorne is a very pleasant 57-year-old Maltese-speaking male patient of Dr. Jin who was accompanied by his significant other at today's visit. He has a past medical history of nephrolithiasis and asthma. He presents to the office today for follow-up of his nephrolithiasis. Recent CT KUB results were reviewed with the patient today. The kidneys are normal in size and shape. 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 At the lower pole of the right kidney a 7 mm nonobstructing calculus is seen. At the upper pole of the right kidney a 6 mm nonobstructing calculus is seen. At the lower pole of the right kidney a 4 mm nonobstructing calculus is seen. There are few further 1 mm nonobstructing left renal calculi. No ureteral calculus or hydroureter is seen bilaterally. There are 3.8cm, 1.4cm, and 9mm benign simple appearing cyst that require no imaging follow-up per radiology report. The bladder is unremarkable. He currently denies any bothersome urinary issues or concerns. When asked he denies urinary urgency, urinary frequency, incontinence, nocturia, hematuria, dysuria, foul smelling urine, changes to urinary stream, flank pain, fever, and or chills. He is happy with his current voiding parameters. Discussed at length potential causes for nephrolithiasis as well as further intervention with ureteroscopy verses surveillance monitoring given increased stone burden on right side. In office urinalysis results reviewed with the patient and his significant other today. Recent PSA results reviewed with the patient today 09/25 0.3. He otherwise offers no other issues or concerns at this time. [facility] Medical History Tubular adenoma of colon Asthma Renal calculi Closed left ankle fracture Family History Mother No problems noted. Father Diabetes Prostate cancer Sister No problems noted. Father Prostate cancer Social History Housing: House Alcohol intake: current Alcohol intake frequency: holidays/special occasions only Patient Tobacco Use Status: Never used Tobacco e-Cigarette/Vaping Use: Never Used Second Hand Smoke Exposure: No Current occupational status: employed Cognitive needs: No Hearing needs: No Vision needs: Yes Review of Systems Eyes Reports no additional complaints ENT Reports no additional complaints Card Reports no additional complaints Resp Reports as per HPI GI Reports no additional complaints Reports as per HPI Musc Reports no additional complaints Neuro Reports no additional complaints Psych Reports no additional complaints Endo Reports no additional complaints Alek/Lymph Reports no additional complaints Aller/Immun Reports no additional complaints Physical Exam Const General: cooperative, healthy appearing, comfortable, no acute distress, well developed, alert and awake Orientation/consciousness: patient oriented x3 Limitations: no limitations HEENT Head: Yes normal to inspection, Yes normocephalic and Yes atraumatic Ears: hearing grossly normal bilaterally Eyes General: appearance normal, both eyes and all related structures Neck Neck: Yes normal visual inspection and Yes trachea midline Chest Chest palpation & inspection: normal inspection of the chest Resp Effort & Inspection: normal respiratory effort and able to speak in complete sentences Cardio Rate: regular rate GI Inspection: Yes normal to inspection General: Yes no CVA tenderness Back/Spine/Pelvis Back: no CVA tenderness Skin General skin exam: no rashes or lesions noted Neuro General: patient oriented x3 Extrem General: Yes normal to inspection Psych Appearance: grossly normal and well kempt Mental Status: mental status grossly normal Speech and movement: Normal speech and movement present and Clear speech present Affect: normal affect Attitude: cooperative Thought process: Normal thought process present Thought content: Normal thought content present Insight: Good insight present (Psych) Judgement: Good judgement present (Psych) Results AMB Urinalysis, Automated UA Leukoctes 0 Santa/uL Last Edit by Erlinda Bridges on 09/10/23 15:12 UA Nitrite Negative Last Edit by WishLinkroland Bridges on 09/10/23 15:12 UA Urobilinogen 0.2 mg/dL Last Edit by [email or web address] on 09/10/23 15:12 UA Protein 15 mg/dL Last Edit by [email or web address] on 09/10/23 15:12 UA pH 6.0 Last Edit by [email or web address] on 09/10/23 15:12 UA Blood 10 Madi/uL Last Edit by [email or web address] on 09/10/23 15:12 UA Specific [place] 1.020 Last Edit by Yovigocecilia on 09/10/23 15:12 UA Ketone Negative Last Edit by [email or web address] on 09/10/23 15:12 UA Bilirubin 0 mg/dL Last Edit by Yovigocecilia on 09/10/23 15:12 UA Glucose 0 mg/dL Last Edit by [email or web address] on 09/10/23 15:12 Results Reviewed Results Reviewed: Laboratory Last Values Urine pH (Auto) 6.0 09/10/23 15:01 Specific [place] (Auto) 1.020 09/10/23 15:01 Urine Protein (Auto) 15 mg/dL 09/10/23 15:01 Glucose (UA)(Auto) 0 mg/dL 09/10/23 15:01 Urine Ketones (Auto) Negative 09/10/23 15:01 Urine Blood (Auto) 10 Madi/uL 09/10/23 15:01 Urine Nitrite (Auto) Negative 09/10/23 15:01 Urine Bilirubin (Auto) 0 mg/dL 09/10/23 15:01 Urine Urobilinogen (Auto) 0.2 mg/dL 09/10/23 15:01 Leukocyte Esterase (Auto) 0 Santa/uL 09/10/23 15:01 Date of Service: 08/01/23 EXAMINATION: CT KIDNEY STONE FINDINGS: LUNG BASES: There is mild bibasilar linear scar/subsegmental atelectasis. LIVER, GALLBLADDER, AND BILIARY TREE: The liver is normal in size, shape, and attenuation. There are 5 low-attenuation hepatic probable cysts, some too small for full characterization with CT (4:68, 82, 83 and 165). The largest is situated within the left hepatic lobe laterally, measuring 2.8 cm with a postcontrast Hounsfield value of 12.7 units (4:86). No biliary ductal dilatation is present. The gallbladder is unremarkable with no evidence of radiopaque gallstones, gallbladder wall thickening, or obvious pericholecystic inflammatory changes. PANCREAS: Unremarkable. SPLEEN: Unremarkable. ADRENAL GLANDS: Unremarkable. KIDNEYS AND URETERS: The kidneys are normal in size and shape. 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 At the lower pole of the right kidney (3:31), a 7 mm nonobstructing calculus is seen. At the upper pole the right kidney (3:18), a 6 mm nonobstructing calculus is seen. At the lower pole of the right kidney (3:22), a 4 mm nonobstructing calculus is seen. There are a few further 1 mm nonobstructing left renal calculi. No ureteric calculus or hydronephroureter is seen bilaterally. No perinephric stranding. At the upper pole of the right kidney (3:80), a 3.8 cm benign, simple cyst is seen, with postcontrast Hounsfield value of 2.3 units. At the interpolar right kidney (3:22), a 1.4 cm cyst is seen, with precontrast Hounsfield value of 7.7 units. At the lower pole of the right kidney (3:28), a 9 mm exophytic benign, simple cyst is seen, with precontrast Hounsfield value of 3.7 units. These cysts require no imaging follow-up. BLADDER: Unremarkable. GASTROINTESTINAL TRACT: The small and large bowel are unremarkable. The appendix is unremarkable. ABDOMINAL WALL: There is a very small fat-containing umbilical hernia. LYMPH NODES: Normal. VASCULAR: Unremarkable. PELVIC VISCERA: The prostate and seminal vesicles are unremarkable. OSSEOUS STRUCTURES: There is marked anterior endplate arthropathy at T10-T11 and T11-T12. No acute or aggressive osseous finding is noted. IMPRESSION: 1. There are nonobstructing bilateral renal calculi, as detailed. No ureteric calculus is seen. There is no obstructive uropathy. The urinary bladder is unremarkable. 2. There is increase in echogenicity of bilateral medullary pyramids, which can be seen in association with medullary nephrocalcinosis. 3. No urinary mass is seen. 4. There is a very small fat-containing umbilical hernia. 5. There is marked anterior endplate arthropathy at T10-T11 and T11-T12. No aggressive osseous lesion is seen. Assessment & Plan Assessment & Plan (1) Renal cyst: Code(s): N28.1 - Cyst of kidney, acquired (2) Renal calculi: Comment: Bilateral September 2022 Code(s): N20.0 - Calculus of kidney Plan In office urinalysis results reviewed with the patient today; as noted above. Recent CT KUB results reviewed with the patient today; as noted above. Recent PSA results reviewed with the patient today. Patient currently denies any bothersome urinary issues or concerns. Discussed at length further treatment options with ureteroscopy verses surveillance monitoring with increase in stone burden on right side. Continue vitamin B6 Continue adding 1 oz of lemon juice to water daily. Discussed at length potential causes of nephrolithiasis. Discussed, stress, and educated on the importance of drinking plenty of water daily. Patient is happy with his current voiding parameters. Follow-up in 6 months with imaging to be completed prior; or sooner with any issues, concerns, and or questions. Orders: Orders Prostate Specific Antigen 09/08/23 Z12.5 - Encounter for screening for malignant neoplasm of prostate AMB Urinalysis Automated Today Z13.9 - Encounter for screening, unspecified CT kidney stone 6 Months N20.0 - Calculus of kidney, N28.1 - Cyst of kidney, acquired Patient Instructions: The patient had an opportunity to ask questions regarding the treatment plan. All questions were answered. Physical exam, labs, and imaging were discussed and reviewed in detail. As well as risks, benefits, and discussion of treatment choices. No major barriers to understanding were identified. The patient expressed understanding and agreement with the above treatment plan. The patient was made aware they should contact our office by phone for worsening of their current condition, the appearance of new symptoms, or with any questions or concerns. Compliance is encouraged with any medications and follow up testing that is ordered. It is a privilege to be allowed the opportunity to participate in? your urological care.? Again, if you have any questions or concerns If you have any questions or concerns please do not hesitate to contact me. The office is [phone]. This note is constructed using voice recognition software. While every effort has been made to ensure accuracy director medical writing errors may have been included. Yours sincerely, FRANSICO Park Coding Level of Care Code Est Pt Level 3 (82244) Diagnoses Renal cyst N28.1 Renal calculi N20.0
== END 2023-09-10 15:31 | disposition home or self-care (01) ==
PROVIDERS: PCP Internal Medicine; Visit Provider Nurse Practitioner Family
DX: N28.1 Cyst of kidney, acquired (principal); N20.0 Calculus of kidney
CPT/HCPCS: 99213

== ENCOUNTER → 2023-09-10 14:31 | Outpatient (BNVA) | payer OTHER, SELFPAY | PROVIDERS: PCP Internal Medicine; Visit Provider Nurse Practitioner Family | DX: N20.0 Calculus of kidney (principal); N28.1 Cyst of kidney, acquired | CPT/HCPCS: 81003 ==

== ENCOUNTER 2024-02-27 07:52 | Outpatient (REF) | payer OTHER, SELFPAY ==
--- NOTE | ~2024-02-27 | CT_ITS ---
EXAMINATION: CT ABDOMEN AND PELVIS WITHOUT CONTRAST CLINICAL INFORMATION: Renal cyst. COMPARISON: August 01, 2023. TECHNIQUE: Multidetector volumetric imaging was performed from the superior aspect of the liver through the pubic symphysis. Sagittal and coronal reformatted images were obtained on the technologist's workstation. This CT examination was performed using dose optimization techniques as appropriate, variously including the following: *Automated exposure control *Adjustment of mA and/or kV according to patient size (this includes techniques or standardized protocols for targeted exams where dose is matched to indication/reason for exam; i.e. extremities or head) *Use of iterative reconstruction technique DLP: 541 mGy-cm FINDINGS: LUNG BASES: The visualized lung bases are unremarkable. LIVER, GALLBLADDER, AND BILIARY TREE: The noncontrast liver is normal in size and contour. Scattered hepatic hypodensities incompletely characterized likely representing cysts. No biliary ductal dilatation is present. The gallbladder is contracted. PANCREAS: Unremarkable. SPLEEN: Unremarkable. ADRENAL GLANDS: Unremarkable. KIDNEYS AND URETERS: The kidneys are symmetric in size. Stable right renal cysts requiring no further routine imaging follow-up. There are several nonobstructing bilateral renal calculi. The largest on the right in the lower pole measures 9 mm. The largest on the left in the mid pole measures 5 mm. Stable 7 mm calculus in the vicinity of the distal right ureter. No left ureteral calculus. No hydronephrosis. No perinephric stranding. BLADDER: No bladder calculus. GASTROINTESTINAL TRACT: Small hiatal hernia. Moderate stool throughout the colon. No small bowel obstruction. ABDOMINAL WALL: Small fat-containing umbilical hernia. LYMPH NODES: No bulky lymphadenopathy. VASCULAR: Normal caliber abdominal aorta. PELVIC VISCERA: Unremarkable. OSSEOUS STRUCTURES: No destructive bone lesions. CT/CT kidney stone IMPRESSION: Stable 7 mm calculus in the vicinity of the right distal ureter. Multiple bilateral nonobstructing renal calculi. No hydronephrosis. Electronically signed by: Roshan Davidson MD 02/27/2024 10:41 AM EDT
== END 2024-02-27 07:53 | disposition home or self-care (01) ==
LOC: HO.CT 07:52
PROVIDERS: PCP Internal Medicine; Visit Provider Nurse Practitioner Family
DX: N28.1 Cyst of kidney, acquired (principal); N20.0 Calculus of kidney
CPT/HCPCS: 74176

== ENCOUNTER 2024-03-11 14:21 | Outpatient (AMB) | payer OTHER, SELFPAY ==
--- NOTE | 2024-03-11 14:29 | A.OFFVIS_ITS ---
Intake Visit Reasons: 6m/CT/KUB/PSA(set) Intake Note: Patient presents today for follow up visit kidney stone, psa and ultrasound results Imagin02/27/24 PSA: 0.25 Urology Medications: Vitamin B6 Blood Thinner: none Squad Boss Required: Yes Accompanied by: Spouse Allergies No Known Allergies Allergy (Verified 03/11/24 14:57) Medication List - Last Reconciled 03/11/24 by FRANSICO Park albuterol sulfate 90 mcg/actuation (Ventolin HFA) 2 puffs inhalation Q6H PRN bisacodyl (Dulcolax (bisacodyl)) 10 mg (2 x 5 mg) PO BEDTIME clotrimazole 1% 1 appl topical BID 4 weeks fluticasone propion-salmeterol 250-50 mcg/dose (Advair Diskus) 1 inh inhalation BID miconazole nitrate 2% (Zeasorb AF) 1 appl topical BID pyridoxine (vitamin B6) 100 mg PO DAILY 90 days HPI Comments Details: Lorne is a very pleasant 58-year-old Occitan-speaking male patient of Dr. Jin who was accompanied by his significant other at today's visit. He has a past medical history of nephrolithiasis and asthma. He presents to the office today for follow-up of his nephrolithiasis. Recent CT KUB results were reviewed with the patient today. Symmetrical in size. Stable renal cyst requiring no follow- up imaging per radiology report. There are several nonobstructing bilateral renal calculi. The largest on the right in the lower pole measures 9 mm. The largest on the left in the mid pole measures 5 mm. Stable 7 mm calculus in the vicinity of the distal right ureter. No left ureteral calculus. No hydronephrosis. No perinephric stranding. No bladder calculus. He currently denies any bothersome urinary issues or concerns. When asked he denies urinary urgency, urinary frequency, incontinence, nocturia, hematuria, dysuria, foul smelling urine, changes to urinary stream, flank pain, fever, and or chills. He is happy with his current voiding parameters. Discussed at length potential causes for nephrolithiasis as well as further intervention with ureteroscopy verses surveillance monitoring given increased stone burden on right side. In office urinalysis results reviewed with the patient and his significant other today. PSAs are as follows: PSA 09/25 0.3 He otherwise offers no other issues or concerns at this time. [facility] Medical History Tubular adenoma of colon Asthma Renal calculi Closed left ankle fracture Family History Mother No problems noted. Father Diabetes Prostate cancer Sister No problems noted. Father Prostate cancer Social History Housing: House Alcohol intake: current Alcohol intake frequency: holidays/special occasions only Patient Tobacco Use Status: Never used Tobacco e-Cigarette/Vaping Use: Never Used Second Hand Smoke Exposure: No Current occupational status: employed Cognitive needs: No Hearing needs: No Vision needs: Yes Review of Systems Eyes Reports no additional complaints ENT Reports no additional complaints Card Reports no additional complaints Resp Reports as per HPI GI Reports no additional complaints Reports as per HPI Musc Reports no additional complaints Neuro Reports no additional complaints Psych Reports no additional complaints Endo Reports no additional complaints Alek/Lymph Reports no additional complaints Aller/Immun Reports no additional complaints Physical Exam Const General: cooperative, healthy appearing, comfortable, no acute distress, well developed, alert and awake Orientation/consciousness: patient oriented x3 Limitations: no limitations HEENT Head: Yes normal to inspection, Yes normocephalic and Yes atraumatic Ears: hearing grossly normal bilaterally Eyes General: appearance normal, both eyes and all related structures Neck Neck: Yes normal visual inspection and Yes trachea midline Chest Chest palpation & inspection: normal inspection of the chest Resp Effort & Inspection: normal respiratory effort and able to speak in complete sentences Cardio Rate: regular rate GI Inspection: Yes normal to inspection General: Yes no CVA tenderness Back/Spine/Pelvis Back: no CVA tenderness Skin General skin exam: no rashes or lesions noted Neuro General: patient oriented x3 Extrem General: Yes normal to inspection Psych Appearance: grossly normal and well kempt Mental Status: mental status grossly normal Speech and movement: Normal speech and movement present and Clear speech present Affect: normal affect Attitude: cooperative Thought process: Normal thought process present Thought content: Normal thought content present Insight: Fair insight present (Psych) Judgement: Fair judgement present (Psych) Results AMB Urinalysis, Automated UA Leukoctes 0 Santa/uL Last Edit by Preparis on 03/11/24 14:41 UA Nitrite Last Edit by Preparis on 03/11/24 14:41 UA Urobilinogen 0.2 mg/dL Last Edit by Preparis on 03/11/24 14:41 UA Protein 15 mg/dL Last Edit by Preparis on 03/11/24 14:41 UA pH 7.5 Last Edit by Preparis on 03/11/24 14:41 UA Blood 25 Madi/uL Last Edit by Preparis on 03/11/24 14:41 UA Specific [place] 1.010 Last Edit by Preparis on 03/11/24 14:41 UA Ketone Last Edit by Preparis on 03/11/24 14:41 UA Bilirubin 0 mg/dL Last Edit by Preparis on 03/11/24 14:41 UA Glucose 0 mg/dL Last Edit by Preparis on 03/11/24 14:41 Results Reviewed Results Reviewed: Laboratory Last Values Urine pH (Auto) 7.5 03/11/24 14:40 Specific [place] (Auto) 1.010 03/11/24 14:40 Urine Protein (Auto) 15 mg/dL 03/11/24 14:40 Glucose (UA)(Auto) 0 mg/dL 03/11/24 14:40 Urine Blood (Auto) 25 Madi/uL 03/11/24 14:40 Urine Bilirubin (Auto) 0 mg/dL 03/11/24 14:40 Urine Urobilinogen (Auto) 0.2 mg/dL 03/11/24 14:40 Leukocyte Esterase (Auto) 0 Santa/uL 03/11/24 14:40 Date of Service: 02/27/24 EXAMINATION: CT ABDOMEN AND PELVIS WITHOUT CONTRAST FINDINGS: LUNG BASES: The visualized lung bases are unremarkable. LIVER, GALLBLADDER, AND BILIARY TREE: The noncontrast liver is normal in size and contour. Scattered hepatic hypodensities incompletely characterized likely representing cysts. No biliary ductal dilatation is present. The gallbladder is contracted. PANCREAS: Unremarkable. SPLEEN: Unremarkable. ADRENAL GLANDS: Unremarkable. KIDNEYS AND URETERS: The kidneys are symmetric in size. Stable right renal cysts requiring no further routine imaging follow-up. There are several nonobstructing bilateral renal calculi. The largest on the right in the lower pole measures 9 mm. The largest on the left in the mid pole measures 5 mm. Stable 7 mm calculus in the vicinity of the distal right ureter. No left ureteral calculus. No hydronephrosis. No perinephric stranding. BLADDER: No bladder calculus. GASTROINTESTINAL TRACT: Small hiatal hernia. Moderate stool throughout the colon. No small bowel obstruction. ABDOMINAL WALL: Small fat-containing umbilical hernia. LYMPH NODES: No bulky lymphadenopathy. VASCULAR: Normal caliber abdominal aorta. PELVIC VISCERA: Unremarkable. OSSEOUS STRUCTURES: No destructive bone lesions. IMPRESSION: Stable 7 mm calculus in the vicinity of the right distal ureter. Multiple bilateral nonobstructing renal calculi. No hydronephrosis. Assessment & Plan Assessment & Plan (1) Renal calculi: Comment: Bilateral September 2022 Code(s): N20.0 - Calculus of kidney Category: Medical Plan: Ureteroscopy We discussed the nature of the decision and reasonable alternatives for performing ureteroscopy. Options such as medical therapy were discussed. Interventions include chemical dissolution, ESWL, ureteroscopy with laser lithotripsy and stent placement, PCNL. The relative uncertainties and benefits related to each alternate procedure were adequately discussed. General surgical risks including, but not limited to - pain, bleeding, infection, myocardial infarction, pulmonary embolus, deep vein thrombosis and cerebrovascular accident which may result in further hospitalization were discussed.? Full disclosure of the procedure as well as all major risks, benefits and complications were discussed including but not limited to damage to the urethra, bladder and kidney infection, damage to the ureter, stent migration or malposition, scarring to the renal pelvis, remnant stone fragments, subsequent stone passage with need for secondary procedures. The overall secondary procedure rate is approximately 10-15%.? The overall clearance rate is approximately 90-95%. Success of the procedure in the short-term does not necessarily guarantee that long-term success will be maintained. Suitable follow up will need to be maintained. The patient showed understanding of discussion and wishes to proceed with - cystoscopy, retrograde, ureteroscopy, possible lithotripsy/stone basketing and stent on the right side (2) Renal cyst: Code(s): N28.1 - Cyst of kidney, acquired Category: Medical Plan In office urinalysis results reviewed with the patient today; as noted above. Recent CT KUB results reviewed with the patient today; as noted above. Patient currently denies any bothersome urinary issues or concerns. Discussed at length further treatment options with ureteroscopy verses jimenes rveillance monitoring with increase in stone burden on right side. Continue vitamin B6 Continue adding 1 oz of lemon juice to water daily. Discussed at length potential causes of nephrolithiasis. Discussed, stress, and educated on the importance of drinking plenty of water daily. Patient is happy with his current voiding parameters. Will schedule for right-sided ureteroscopy as discussed. Follow-up per doctor's orders; or sooner with any issues, concerns, and or questions. Orders: Orders AMB Urinalysis Automated Today Z13.9 - Encounter for screening, unspecified Patient Instructions: The patient had an opportunity to ask questions regarding the treatment plan. All questions were answered. Physical exam, labs, and imaging were discussed and reviewed in detail. As well as risks, benefits, and discussion of treatment choices. No major barriers to understanding were identified. The patient expressed understanding and agreement with the above treatment plan. The patient was made aware they should contact our office by phone for worsening of their current condition, the appearance of new symptoms, or with any questions or concerns. Compliance is encouraged with any medications and follow up testing that is ordered. It is a privilege to be allowed the opportunity to participate in? your urological care.? Again, if you have any questions or concerns If you have any questions or concerns please do not hesitate to contact me. The office is [phone]. This note is constructed using voice recognition software. While every effort has been made to ensure accuracy solar energy sales specialist errors may have been included. Yours sincerely, FRANSICO Park Coding Level of Care Code Est Pt Level 4 (64408) Diagnoses Renal calculi N20.0 Renal cyst N28.1
== END 2024-03-11 15:05 | disposition home or self-care (01) ==
PROVIDERS: PCP Internal Medicine; Visit Provider Nurse Practitioner Family
DX: N20.0 Calculus of kidney (principal); N28.1 Cyst of kidney, acquired; Z13.9 Encounter for screening, unspecified
CPT/HCPCS: 99214

== ENCOUNTER → 2024-03-11 14:21 | Outpatient (BNVA) | payer OTHER, SELFPAY | PROVIDERS: PCP Internal Medicine; Visit Provider Nurse Practitioner Family | DX: N20.0 Calculus of kidney (principal); N28.1 Cyst of kidney, acquired | CPT/HCPCS: 81003 ==

== ENCOUNTER 2024-04-22 08:25 | Day surgery (SDC) | payer OTHER, SELFPAY ==
--- NOTE | 2024-04-21 09:12 | HO.ANESPROP2 ---
Documented by User: Bernie Scott NP 04/21/24 09:13 HPI - Anesthesia Eval Consult details Narrative: 58yo M for Right Cystoscopy Ureteroscopy with possible stent placement s/p [place] 08/2023 with TIVA PMFSH Active Problems Active Problems: All Active Problems Tubular adenoma of colon (Acute) Renal cyst (Acute) Tinea cruris (Acute) Annual physical exam (Acute) Asthma (Acute) Colon cancer screening (Acute) Obesity (BMI 30-39.9) (Acute) Renal calculi (Acute) Past Medical History Medical History Tubular adenoma of colon Asthma Renal calculi Closed left ankle fracture Family History Family History Mother No problems noted. Father Diabetes Prostate cancer Sister No problems noted. Father Prostate cancer Family history of problems with anesthesia: No Surgical History Surgical History H/O colonoscopy History of Problems with Anesthesia: No Social History Social History Housing: House Alcohol intake: current Alcohol intake frequency: holidays/special occasions only Patient Tobacco Use Status: Never used Tobacco e-Cigarette/Vaping Use: Never Used Second Hand Smoke Exposure: No Use of substances other than those prescribed or required for medical reasons: No Are you DNR?: No Advance Directives: No Advance Directives Information Provided: Yes Recently lost weight without trying: No Current occupational status: employed Cognitive needs: No Hearing needs: No Vision needs: Yes Meds Allergies Allergy/AdvReac Type Severity Reaction Status Date / Time No Known Allergies Allergy Verified 04/22/24 08:33 Assessment and Plan Assessment Anesthesia Assessment: Chart Reviewed Final Anesthetic Review Family History of Problems with Anesthesia: No History of Problems with Anesthesia: No Documented by User: Angeles Cameron MD 04/22/24 10:37 PMFSH Past Medical History Medical History Tubular adenoma of colon Asthma Renal calculi Closed left ankle fracture Family History Family History Mother No problems noted. Father Diabetes Prostate cancer Sister No problems noted. Father Prostate cancer Surgical History Surgical History H/O colonoscopy Social History Social History Housing: House Alcohol intake: current Alcohol intake frequency: holidays/special occasions only Patient Tobacco Use Status: Never used Tobacco e-Cigarette/Vaping Use: Never Used Second Hand Smoke Exposure: No Use of substances other than those prescribed or required for medical reasons: No Are you DNR?: No Advance Directives: No Advance Directives Information Provided: Yes Recently lost weight without trying: No Current occupational status: employed Cognitive needs: No Hearing needs: No Vision needs: Yes Meds Allergies Allergy/AdvReac Type Severity Reaction Status Date / Time No Known Allergies Allergy Verified 04/22/24 08:33 Exam Airway Mallampati Class: II TM Dist: >3cm Neck ROM: Full Heart: rrr Lungs: cta Assessment and Plan Assessment Anesthesia Assessment: Anesthesia Plan Discussed Final Anesthetic Review NPO: Yes ASA Class: II Final Preanesthetic Review: No Changes in Pt Med Stat, Meds/Allgs Chart Reviewed, Consent Obtained/Reviewed and Anes Risks/Benef Reviewed Patient Risk: Intermediate Procedure Risk: Low Anesthetic Plan Anesthetic Plan: GA Disposition: Standard PACU
[2024-04-22 08:35] VITALS: BMI 32.3
[2024-04-22 08:51] VITALS: BP 168/91; PULSE 81; RESP 15; TEMP 36.9; O2SAT 98
[2024-04-22] MEDS: Lactated Ringers 1,000 ML 100 ML IVCONT (09:01)
--- NOTE | 2024-04-22 10:35 | MHC.SHP ---
Pre-Procedural Eval Section A - 24 Hr Update-Section A only Date of Service: 04/22/24 The patient is an INPATIENT: No The patient has been examined within 24 hours of the surgical procedure. The History & Physical has been completed within 30 days and I have reviewed it.: Yes Section B - Complete if H&P > 30 days Chief Complaint: Calculus of kidney Allergies: Allergies Allergy/AdvReac Type Severity Reaction Status Date / Time No Known Allergies Allergy Verified 04/22/24 08:33 Plan Diagnosis/Plan: Unchanged I have reviewed the history and physical and performed a pertinent physical examination on my patient. No changes have occurred unless specified. Plan for Cystoscopy, right ureteroscopy, possible laser lithotripsy, possible ureteral stent. Risks discussed included but not limited to, possible need to repeat procedure if stone is not completely fragmented, Irritative voiding symptoms, bladder spasms, urgency, blood in urine. Time Spent With Patient Time: Total time managing care of this patient today ____ minutes.
--- NOTE | 2024-04-22 11:49 | P.OP_ITS ---
Operative Note Operative Note Date of Service: 04/22/24 Narrative: PreOperative Diagnosis:?? right ureteral stone Post Operative Diagnosis:?? right ureteral stone Procedure: - Cystoscopy, right retrograde, right ureteroscopy laser lithotripsy stent insertion, 6 Macanese by 22-32 cm Surgeon:?Dr Shari Beckwith Anesthesia:? General Indications for procedure: Lorne is a 58 y/o male with history of nephrolitiasis, he is noted to have multipe right renal and a solitary 7 mm right ureteral stone. Discussed start treatment plan with ureteroscopy laser right ureteral stone. Procedure: After informed consent was verified the patient was brought to the operating placed on the OR table in supine position.? General Anesthesia was administered per protocol.? The patient was placed in lithotomy position, prepped and draped in the usual sterile fashion.? Safety pause time-out and side of surgery confirmed.? Antibiotics confirmed. 2% lidocaine jelly 10 mL was passed transurethrally. A 22 Macanese cystoscope was inserted transurethrally, the bulbous urethra was within normal limits. The prostatic urethra was nonobstructive. The bladder was visualized.? Both ureteric orifices were in normal position. An open-ended ureteral catheter was passed into the right ureteral orifice and a retrograde examination was performed. There was a filling defect in the distal ureter and dilatation proximal to the stone. A guidewire was passed through the ureteral catheter into the kidney. The balloon dilator was passed over the guide-wire the balloon was inflated to 8 mmHg and the intramural ureter was dilated for 30 seconds. The balloon was deflated and removed. After removing the balloon dilator a 2nd guidewire was then passed into the kidney to use as a safety. The cystoscope was removed, leaving both guidewires in place. One guidewire was used as the safety and was attached to the draping. The semi rigid ureteroscope was passed over one of the guidewires to the level of the stone in the ureter. One guidewire was then removed. Laser lithotripsy of the stone was done using the 365 fiber with a alternating pulsating and dusting setting. There was good fragmentation of the stone. The 0 degree basket was passed through the ureteroscope, stone fragment(s) removed and sent for analysis. The ureteroscope was removed. The cystoscope was passed over the safety guidewire. A? 6 Macanese by 22-32 cm stent was placed into the ureter and renal pelvis under a combination of fluoroscopy and direct visualization. The bladder was emptied.? The rigid cystoscope was removed. ?Belladonna suppository was placed per rectum. The patient tolerated the procedure well and was brought to the recovery room in stable condition. The patient will need further treatment for renal calculi. Complications: None EBL: minimal Drains: Ureteral stent as dictated above
[2024-04-22 11:55] VITALS: BP 147/81; PULSE 61; RESP 10; TEMP 36.1; O2SAT 99
[2024-04-22 12:00] VITALS: BP 143/83; PULSE 65; RESP 14; O2SAT 99
[2024-04-22 12:05] VITALS: BP 152/80; PULSE 66; RESP 16; O2SAT 99
[2024-04-22 12:10] VITALS: BP 158/81; PULSE 68; RESP 16; O2SAT 96
[2024-04-22] MEDS: Phenazopyridine HCL 200 MG TABLET PO (12:14)
[2024-04-22 12:25] VITALS: BP 144/81; PULSE 66; RESP 16; TEMP 36.1; O2SAT 95
[2024-04-30 02:13] LABS: Stone Source RIGHT KIDNEY STONE
== END 2024-04-22 13:03 | disposition home or self-care (01) ==
PROVIDERS: PCP Internal Medicine; Visit Provider Urology
PROC: (CPT 52356; principal; 2024-04-22 10:00)
DX: N20.1 Calculus of ureter (principal); Z87.442 Personal history of urinary calculi; N28.1 Cyst of kidney, acquired; J45.909 Unspecified asthma, uncomplicated; Z79.51 Long term (current) use of inhaled steroids; Z79.899 Other long term (current) drug therapy
CPT/HCPCS: 52356; 82365; 88300; C1726; C1758; C1769; C2617; J0690; J2003; J2405; J2704; J3010; Q9967

== ENCOUNTER → 2024-04-22 08:25 | Outpatient (BNV) | payer OTHER, SELFPAY | PROVIDERS: PCP Internal Medicine; Visit Provider Urology | DX: N20.1 Calculus of ureter (principal) | CPT/HCPCS: 52356 ==

== ENCOUNTER 2024-05-21 06:02 | Day surgery (SDC) | payer OTHER, SELFPAY ==
--- NOTE | 2024-05-19 13:38 | HO.ANESPROP2 ---
Documented by User: Bernie Scott NP 05/19/24 13:39 HPI - Anesthesia Eval Consult details Narrative: 58yo M for Right Lithotripsy ESW, possible stent removal s/p cysto etc 04/2024 with GA-LMA 4 PMFSH Active Problems Active Problems: All Active Problems Renal cyst (Acute) Tinea cruris (Acute) Annual physical exam (Acute) Asthma (Acute) Colon cancer screening (Acute) Obesity (BMI 30-39.9) (Acute) Tubular adenoma of colon (Acute) Renal calculi (Acute) Past Medical History Medical History Tubular adenoma of colon Asthma Renal calculi Closed left ankle fracture Family History Family History Mother No problems noted. Father Diabetes Prostate cancer Sister No problems noted. Father Prostate cancer Family history of problems with anesthesia: No Surgical History Surgical History Hx of cystoscopy H/O colonoscopy History of Problems with Anesthesia: No Social History Social History Housing: House Alcohol intake: current Alcohol intake frequency: holidays/special occasions only Patient Tobacco Use Status: Never used Tobacco e-Cigarette/Vaping Use: Never Used Second Hand Smoke Exposure: No Are you DNR?: No Advance Directives: No Advance Directives Information Provided: Yes Current occupational status: employed Cognitive needs: No Hearing needs: No Vision needs: Yes Meds Allergies Allergy/AdvReac Type Severity Reaction Status Date / Time No Known Allergies Allergy Verified 05/21/24 06:31 Assessment and Plan Assessment Anesthesia Assessment: Chart Reviewed Final Anesthetic Review Family History of Problems with Anesthesia: No History of Problems with Anesthesia: No Documented by User: Aparna Shah MD 05/21/24 07:37 [facility] Past Medical History Medical History Tubular adenoma of colon Asthma Renal calculi Closed left ankle fracture Family History Family History Mother No problems noted. Father Diabetes Prostate cancer Sister No problems noted. Father Prostate cancer Surgical History Surgical History Hx of cystoscopy H/O colonoscopy Social History Social History Housing: House Alcohol intake: current Alcohol intake frequency: holidays/special occasions only Patient Tobacco Use Status: Never used Tobacco e-Cigarette/Vaping Use: Never Used Second Hand Smoke Exposure: No Are you DNR?: No Advance Directives: No Advance Directives Information Provided: Yes Current occupational status: employed Cognitive needs: No Hearing needs: No Vision needs: Yes Meds Allergies Allergy/AdvReac Type Severity Reaction Status Date / Time No Known Allergies Allergy Verified 05/21/24 06:31 Exam Airway Mallampati Class: III TM Dist: >3cm Neck ROM: Full Loose/Missing/Broken Teeth: No Heart: RRR Lungs: CTA Assessment and Plan Assessment Anesthesia Assessment: Anesthesia Plan Discussed Final Anesthetic Review NPO: Yes ASA Class: II Final Preanesthetic Review: Meds/Allgs Chart Reviewed, Consent Obtained/Reviewed and Anes Risks/Benef Reviewed Patient Risk: Low Procedure Risk: Low Anesthetic Plan Anesthetic Plan: MAC: Disposition: Standard PACU
[2024-05-21] VITALS (9 sets, daily range): BP systolic 90–144; BP diastolic 43–83; PULSE 61–82; RESP 16–18; TEMP 36.2–37.1; O2SAT 93–99; BMI 32.1
--- NOTE | ~2024-05-21 | XR_ITS ---
EXAMINATION: XR ABDOMEN KUB CLINICAL INDICATION: Right renal stone. COMPARISON: CT kidney stone 02/27/2024. TECHNIQUE: 2 AP views of the abdomen. FINDINGS: Right ureteral stent with proximal end overlying right kidney and distal end overlying the pelvis. Small rounded pelvic calcifications overlying the distal stent may represent bladder calculi or distal right ureteral calculi. Additional small pelvic calcifications, at least some of which are phleboliths. Nonobstructive bowel gas pattern. Large amount of stool throughout the colon. Visualization of the bilateral kidneys is limited due to overlying bowel. Possible right renal calculi difficult to confirm. Multiple calculi overlying the left kidney, largest 5 mm upper pole and 5 mm interpolar region. Degenerative changes in the lumbar spine. XR/XR KUB IMPRESSION: 1. Right ureteral stent with proximal end overlying right kidney and distal end overlying the pelvis. Small rounded pelvic calcifications overlying the distal stent may represent bladder calculi or distal right ureteral calculi. Additional small pelvic calcifications, at least some of which are phleboliths. 2. Nonobstructive bowel gas pattern. Large amount of stool throughout the colon. Visualization of the bilateral kidneys is limited due to overlying bowel. 3. Possible right renal calculi difficult to confirm. 4. Multiple calculi overlying the left kidney, largest 5 mm upper pole and 5 mm interpolar region. This study was presented today to 05/21/2024 for interpretation. Stat results provided at this time as requested by referring provider. Electronically signed by: Holly Clark MD 05/21/2024 08:59 AM [facility]
[2024-05-21] MEDS: Lactated Ringers 1,000 ML 100 ML IVCONT (07:00)
[2024-05-21] MEDS: Albuterol Sulfate (0.083%) 2.5 MG/3 ML VIAL.NEB INHALE (07:17)
[2024-05-21] MEDS: levoFLOXacin 500 MG TABLET PO (07:40)
--- NOTE | 2024-05-21 07:43 | MHC.SHP ---
Pre-Procedural Eval Section A - 24 Hr Update-Section A only Date of Service: 05/21/24 The patient is an INPATIENT: No Changes since office visit: No Cold of Flu in the past 2 weeks, No New Medical Problems, No Changes in Medication and No Patient answered all questions The patient has been examined within 24 hours of the surgical procedure. The History & Physical has been completed within 30 days and I have reviewed it.: Yes Section B - Complete if H&P > 30 days Chief Complaint: Calculus of kidney Details of Present Illness: Prior procedure with right ureteric stone. Here for ESWL of right renal stone and stent removal. Relevant Family History (Specify if Yes): No Relevant Social History: None Present Medications: see Short Stay Collaborative assessment Medical History: No relevant PMH History of Previous Operations: Relevant previous surgery/procedure and date(s) Allergies: Allergies Allergy/AdvReac Type Severity Reaction Status Date / Time No Known Allergies Allergy Verified 05/21/24 06:31 Review of Systems Sugical H&P ROS: Negative: Constitution, Cardiovascular, Respiratory, Neurological, Psychiatric, Hem-Onc, Allergic/Immunologic, Gastrointestinal, Genitourinary, Musculoskeletal, Integumentary, Endocrine and Eyes/Ears/Nose/Throat Plan Diagnosis/Plan: Unchanged I have reviewed the history and physical and performed a pertinent physical examination on my patient. No changes have occurred unless specified. Time Spent With Patient Time: Total time managing care of this patient today ____ minutes.
--- NOTE | 2024-05-21 08:47 | W.PM.OPN ---
Operative Note Operative Note Date of Service: 05/21/24 Narrative: PreOperative Diagnosis: right Renal stones, indwelling stent Post Operative Diagnosis: right Renal stones Procedure: right ESWL, cysto stent removal Surgeon: Dr Arnie Mccurdy Anesthesia: mac/sedation Indications for procedure: The patient understands ESWL may be a staged procedure and subsequent intervention may be required based on imaging after ESWL. Quoted stone clearance rates for a solitary procedure are in the 70-80% range based primarily on stone location. They also understand there is a risk of bleeding to the kidney, infection, damage to adjacent organs, and stone migration following the procedure. - Imaging 9mm right lower pole - and left midpole Procedure optimization has been performed with IV acetaminophen given in the holding area and 1 L of lactated Ringer's to be given in order to optimize the fluid-stone interface. 20 mg of IV Lasix will be given in the last 5 minutes of the procedure to optimize stone clearance. Procedure: After informed consent was verified the patient was brought to the operating room and placed in a supine position. Anesthesia was performed per protocol. Safety pause time-out was performed. Imaging was displayed in the room and laterality confirmed. ESWL was performed. The 1st 500 shocks were performed at 60 hertz. These were performed with increasing power. Once maximum power was reached the rate was increased to 180 hertz. A total of 2500 shocks were given. Targeted imaging with ultrasound/fluoroscopy showed stone smudging suggestive of disintegration. At completion of the procedure cystoscopy was performed. Clean technique use Disposable cystoscope Stent seen emerging from right ureteric orifice was grasped and removed. The patient tolerated the procedure well and was transferred to the recovery area upon completion. Post procedure imaging will be organized. There was no evidence for flank discoloration.
== END 2024-05-21 10:18 | disposition home or self-care (01) ==
PROVIDERS: PCP Internal Medicine; Visit Provider Urology
PROC: (CPT 50590; principal; 2024-05-21 07:30)
DX: N20.0 Calculus of kidney (principal); Z96.0 Presence of urogenital implants; Z87.442 Personal history of urinary calculi; N28.1 Cyst of kidney, acquired; J45.909 Unspecified asthma, uncomplicated; Z79.51 Long term (current) use of inhaled steroids; Z79.899 Other long term (current) drug therapy
CPT/HCPCS: 50590; 52310; 74018; 94640; J1940; J2003; J2250; J2704; J3010

== ENCOUNTER → 2024-05-21 06:02 | Outpatient (BNV) | payer OTHER, SELFPAY | PROVIDERS: PCP Internal Medicine; Visit Provider Urology | DX: N20.0 Calculus of kidney (principal); Z96.0 Presence of urogenital implants | CPT/HCPCS: 50590; 52310 ==

== ENCOUNTER 2024-06-30 08:02 | Outpatient (REF) | payer OTHER, SELFPAY ==
--- NOTE | ~2024-06-30 | US_ITS ---
CLINICAL HISTORY: N20.0 - Calculus of kidney US Renal Comparison: US/AZ/SR - US RENAL BI - 09/11/22 14:08 EDT Findings: the right kidney measures 12.9 x 5.2 x 5.5 cm. Three cysts are noted the largest is seen in the upper pole measuring up to 3.8 cm in greatest diameter. 8 mm calculus is seen in the lower pole. There is no evidence of hydronephrosis. The left kidney measures 12.5 x 5.8 x 3.9 cm. 4.6 mm calculus is seen in the upper pole. 4 mm calculus is seen in the midpole. 4.4 mm calculus is seen in the lower pole. A 2nd calculus is seen in the lower pole measuring 3.6 mm. There is no hydronephrosis. The bladder is not evaluated. IMPRESSION: 1. Left-sided nephrolithiasis without obstructive uropathy. 2. 3 right renal cysts with the largest measuring 3.8 cm and located in the upper pole. 3. Right renal calculus lower pole measuring 8 mm. No evidence of obstructive uropathy. This document has been electronically signed by: Ian Harkins MD on 06/30/2024 11:42:39
== END 2024-06-30 08:03 | disposition home or self-care (01) ==
LOC: HO.US 08:02
PROVIDERS: PCP Internal Medicine; Visit Provider Urology
DX: N20.0 Calculus of kidney (principal)
CPT/HCPCS: 76775

== ENCOUNTER → 2024-06-30 08:04 | Outpatient (BNV) | payer OTHER, SELFPAY | PROVIDERS: PCP Internal Medicine; Visit Provider Radiology Diagnostic Radiology | DX: N20.0 Calculus of kidney (principal); N28.1 Cyst of kidney, acquired | CPT/HCPCS: 76775 ==

== ENCOUNTER 2024-07-15 15:11 | Outpatient (AMB) | payer OTHER, SELFPAY ==
--- NOTE | 2024-07-15 15:29 | A.OFFPC_ITS ---
Vital Signs 07/15/24 15:30 Height 5 ft 7 in Weight 209 lb BMI 32.7 BP 110/76 Blood Pressure Location Lt brachial Position Sitting Pulse 64 Pulse Source Pulse Oximeter Temp 97.3 F Temp Source Skin Pulse Oximetry (%) 94 Oxygen Delivery Method Room Air Intake Visit Reasons: annual exam Intake Note: Patient is here today for a physical. Quill Worker Required: Yes Quill Worker Language: Strap Cutting Machine Operator Name: Deanna (Spouse) Information Interpreted: non-clinical & clinical (pt decline client representative service. Per spouse to translate.) Work Ticket Distributor: Present Accompanied by: Spouse Allergies No Known Allergies Allergy (Verified 07/15/24 15:50) Medication List - Last Reconciled 07/15/24 by Oxana Al PA-C albuterol sulfate 90 mcg/actuation (Ventolin HFA) 2 puffs inhalation Q6H PRN pyridoxine (vitamin B6) 100 mg PO DAILY 90 days Tobacco use date assessed: 07/15/24 Dental Screening Dental Screen Date: 07/15/24 Did you have a dental visit in the last 12 months?: Yes Did you have a dental problem in the last 6 months where you did not have access to dental care?: No Was dental information given to patient?: Patient has dentist HPI annual exam HPI Details 58-year-old male with past medical histo ry obesity, asthma, renal calculi last seen 11/2022 coming in for annual exam.? In review of the notes, patient was seen by Urology 03/11/2024 scheduled for right-sided ureteroscopy which was completed 06/30/2024 and will have follow up in August. Patient presents today with his spouse who provides translation to the duration of this appointment. Formal translation was declined today. Patient tells us today he has been out of the albuterol for the past several weeks. He has been using the albuterol 3-4x per week and having coughing fits often. Denies any nighttime awakenings. No acute concerns today. Colonoscopy: completed 08/08/2023 repeat colonoscopy in 1-2 years. settlement clerk walking. Vax: flu not up to date, Td up to date. PFSH Medical History Tubular adenoma of colon Asthma Renal calculi Closed left ankle fracture Surgical History Hx of cystoscopy H/O colonoscopy Family History Mother No problems noted. Father Diabetes Prostate cancer Sister No problems noted. Father Prostate cancer Social History Housing: House Alcohol intake: current Alcohol intake frequency: holidays/special occasions only Patient Tobacco Use Status: Never used Tobacco e-Cigarette/Vaping Use: Never Used Second Hand Smoke Exposure: No service: No Current occupational status: employed Cognitive needs: No Hearing needs: No Vision needs: Yes Questionnaire PHQ-9 Over the last 2 weeks, how often have you been bothered by any of the following problems? 1. Little interest or pleasure in doing things: not at all 2. Feeling down, depressed, or hopeless: not at all 3. Trouble falling or staying asleep, or sleeping too much: not at all 4. Feeling tired or having little energy: not at all 5. Poor appetite or overeating: not at all 6. Feeling bad about yourself - or that you are a failure or have let yourself or your family down: not at all 7. Trouble concentrating on things, such as reading the newspaper or watching television: not at all 8. Moving or speaking so slowly that other people could have noticed. Or the opposite - being so fidgety or restless that you have been moving around a lot more than usual: not at all 9. Thoughts that you would be better off or of hurting yourself in some way: not at all Total score: 0 Depression Screening Interpretation: Negative Depression Screening Done: Yes Source: Developed by Drs. Gumaro Maldonado, Veronica Love, Blaise Humphrey and colleagues, with an educational eric from [employer]. Thrive Questionnaire Date Thrive assessed: 07/15/24 I am a: Patient What is your living situation today?: I have a steady place to live Within the past 12 months, did the food you bought not last and you didn't have the money to get more?: Never true Within the past 12 months, did you worry whether your food would run out before you got money to buy more?: Never true Do you have trouble paying for medicines?: No Do you have trouble getting transportation to medical appointments?: No Do you have trouble paying your heating and electricity bill?: No Do you have trouble taking care of your child, family member or friend?: No Do you have trouble with day-to-day activities such as bathing, preparing meals, shopping, managing finances, etc.?: No Are you currently unemployed and looking for a job?: No Are you interested in more education?: No Please select the resources that you would like help with: None Currently or been in a relationship where the following occur: No concerns reported THRIVE Score: 0 AUDIT C Alcohol Use Questionnaire (AUDIT-C) 1. How often do you have a drink containing alcohol?: Monthly or less 2. How many drinks containing alcohol do you have on a typical day when you are drinking?: 1 or 2 Total Score: 1 TYE-7 AMB Questionnaire TYE-7 Date TYE - 7 assessed: 07/15/24 Feeling nervous, anxious, or on edge: 0 = Not at all Not being able to stop or control worryin = Not at all Worrying too much about different things: 0 = Not at all Trouble relaxin = Not at all Being so restless that it is hard to sit still: 0 = Not at all Becoming easily annoyed or irritable: 0 = Not at all Feeling afraid as if something awful might happen: 0 = Not at all Total TYE-7 score (0-4 normal; 5-9 mild; 10-14 moderate; 15-21 severe): 0 Source: Developed by Drs. Gumaro Maldonado, Veronica Love, Blaise Humphrey and colleagues, with an educational eric from [employer]. Review of Systems Const Denies body aches, Denies fatigue, Denies fever(s), Denies frequent falls, Denies headache(s) and Denies weakness Eyes Reports no additional complaints and Denies change in vision ENT Denies dysphagia, Denies dizziness, Denies facial pain, Denies headache(s) and Denies odynophagia Card Denies chest pain, Denies syncope, Denies irregular heart rhythm, Denies leg edema, Denies lightheadedness and Denies dyspnea Resp Denies cough and Denies dyspnea GI Denies abdominal pain, Denies constipation, Denies dysphagia, Denies dyspepsia, Denies diarrhea, Denies nausea, Denies odynophagia and Denies vomiting Denies dysuria, Denies urinary frequency, Denies urinary hesitancy and Denies urinary urgency Musc Denies back pain and Denies myalgias Skin/Breast Reports system reviewed and no additional complaints, except as documented Neuro Denies dizziness, Denies syncope, Denies frequent falls, Denies headache(s) and Denies weakness Psych Reports no additional complaints Endo Denies fatigue Physical exam (Primary Care) Vital Signs: Last Vital Signs Temp 97.3 F 07/15/24 15:30 Pulse 64 07/15/24 15:30 BP 110/76 07/15/24 15:30 Pulse Ox 94 07/15/24 15:30 Oxygen Delivery Method Room Air 07/15/24 15:30 BMI result Body Mass Index 32.7 BMI Assessment/Plan discussion: High BMI High, discussed plan: lifestyle, dietary and physical activity Tobacco/Smoking Status: Tobacco use Status Tobacco use date assessed 07/15/24 07/15/24 15:37 Patient Tobacco Use Status Never used Tobacco 07/15/24 15:37 e-Cigarette/Vaping Use Never Used 07/15/24 15:37 PHQ-9: PHQ-9 Score PHQ-9: Total score 0 07/15/24 16:09 Depression Screening Interpretation: Negative Thrive Assessment: Date of Thrive Assessment Date Thrive assessed 07/15/24 07/15/24 15:37 Currently or been in a relationship where the following occur: No concerns reported Const General: cooperative, healthy appearing, comfortable and no acute distress Orientation/consciousness: patient oriented x3 HENMT Head: Yes normocephalic Ears: hearing grossly normal bilaterally, external ears normal, TM's normal bilaterally and EAC's normal General nose exam: Normal external nose present Face and sinus: Yes normal facial exam and Yes sinuses nontender Mouth: Normal oral and palatal mucosa present and tongue normal Throat: Yes posterior oropharynx normal Eyes General: appearance normal, both eyes and all related structures Conjunctivae: conjunctivae normal Pupils: Equal, round and reactive pupils present EOM: EOMs intact bilaterally and No Nystagmus present Neck Neck: Yes normal visual inspection, Yes full ROM and Yes no lymphadenopathy Chest Chest palpation & inspection: normal inspection of the chest Resp Effort & Inspection: normal respiratory effort Auscultation: clear to auscultation bilaterally, no crackles, no rales, no rhonchi, no wheezes and breath sounds present Cardio Rate: regular rate Rhythm: regular rhythm Peripheral pulses: radial pulses present and dorsalis pedis present GI Inspection: Yes normal to inspection and No Abdominal wall edema Palpation (GI): Soft to palpation, not firm and nontender Auscultation: normal bowel sounds Rectal Exam - Male: Yes deferred General: Yes no CVA tenderness Back/Spine/Pelvis Back: no CVA tenderness Skin General skin exam: no rashes or lesions noted Neuro General: patient oriented x3 Cranial nerves: Yes Equal, round and reactive pupils present, Yes Midline tongue present, Yes Ability to bilaterally elevate shoulders present and No Nystagmus present Gait exam (Neuro): Normal gait present Extrem General: Yes normal to inspection, Yes full ROM, No no pedal edema and No edema Psych Speech and movement: Normal speech and movement present Affect: normal affect Insight: Good insight present (Psych) Judgement: Good judgement present (Psych) Office Procedures Flu Questionnaire Does the patient have a severe egg allergy?: No Does the patient have severe life threatening allergies?: No Does the patient have a fever or illness today?: No Has the patient ever had Guillain-Bud Syndrome?: No Has the patient ever had any past reaction to a flu shot?: No Immunizations Fluarix Triv [id number] (PF) 45 mcg (15 mcg x 3)/0.5 mL IM syringe Performing Provider: Oxana Al PA-C [place] [facility] [place] [facility] Administered by: Desirae King LPN on 07/15/24 16:08 Dose Route Admin Location Dispensed Lot Number Expiration Date [facility] Stunt Man 0.5 mL IM Left Deltoid 0.5 mL [id number] 12/01/24 [id number] [employer] VIS Given Date VIS Provided VIS Publication Date 07/15/24 Single Vaccine 21 Eligibility Eligibility Date Funding Source Not [facility] Eligible 07/15/24 Private Coding Level of Care Code Est Pt Prev Care 40-64y(47862) Diagnoses Annual physical exam Z00.00 Mild intermittent asthma, unspecified whether complicated J45.20 Asthma severity: mild Asthma persistence: intermittent Asthma complication type: unspecified Obesity (BMI 30-39.9) E66.9 Tubular adenoma of colon D12.6 Renal calculi N20.0 Renal cyst N28.1 Screening for hypercholesterolemia Z Assessment & Plan Assessment & Plan (1) Annual physical exam: Code(s): Z00.00 - Encounter for general adult medical examination without abnormal findings Category: Medical Plan: Routine blood work is scheduled to monitor diabetes, prostate health, and overall health markers. The patient received the influenza vaccine and is advised to procure the COVID-19 vaccine from a pharmacy location. Follow-up is scheduled in six weeks to assess asthma management efficacy and review laboratory findings. (2) Asthma: Comment: PFT September 2022 Code(s): J45.909 - Unspecified asthma, uncomplicated Category: Medical Qualifiers: Asthma severity: mild Asthma persistence: intermittent Asthma complication type: unspecified Qualified Code(s): J45.20 - Mild intermittent asthma, uncomplicated Plan: Asthma not currently controlled on albuterol monotherapy. Plan to add inhaled corticosteroid to medication regimen. Avoid triggers such as allergies and smoking. Modification of current asthma management is necessary given the frequent use of albuterol inhaler, necessitating the introduction of a daily inhaled corticosteroid, following insurance confirmation. Proper mouth rinsing post use is advised to mitigate potential complications. Follow up in 6 weeks (3) Obesity (BMI 30-39.9): Code(s): E66.9 - Obesity, unspecified Category: Medical Plan: Healthy diet and regular exercise is encouraged. (4) Tubular adenoma of colon: Code(s): D12.6 - Benign neoplasm of colon, unspecified Category: Medical Plan: Repeat colonoscopy in 1-2 years, continue to follow with GI. (5) Renal calculi: Comment: Bilateral September 2022, extraction April 2024 Code(s): N20.0 - Calculus of kidney Category: Medical Plan: Continue to follow with Urology. Stay well hydrated. (6) Renal cyst: Code(s): N28.1 - Cyst of kidney, acquired Category: Medical Plan: Continue to follow with Urology has been monitoring this. (7) Screening for hypercholesterolemia: Code(s): Z13. - Encounter for screening for lipoid disorders Category: Medical Plan: Ordered updated blood work. Plan Patient was informed and verbally consented to the use of an ambient scribe for clinic note documentation during this visit. This note was constructed using voice recognition software. While every effort has been made to ensure accuracy and prosthetic technician, still areas may have been included sometimes these areas may affect the content or meeting of the given symptoms. Total time spent caring for the patient today was thirty minutes. This includes time spent before the visit reviewing the chart, time spent during the visit, and time spent after the visit and documentation. Orders: Orders Complete Blood Count Auto Diff Today Z00.00 - Encounter for general adult medical examination without abnormal findings Free T4 (Free Thyroxine) Today Z00.00 - Encounter for general adult medical examination without abnormal findings Vitamin B12 and Folate Today Z00.00 - Encounter for general adult medical examination without abnormal findings Lipid Panel Today Z13.220 - Encounter for screening for lipoid disorders Comprehensive Met. Panel Today Z00.00 - Encounter for general adult medical examination without abnormal findings TSH reflex Free T4 Today Z00.00 - Encounter for general adult medical examination without abnormal findings PSA, Ultra Sensitive Today Z00.00 - Encounter for general adult medical examination without abnormal findings Vitamin D 25-OH Total Today Z00.00 - Encounter for general adult medical examination without abnormal findings Influenza [id number] Immunization Today Z23 - Encounter for immunization Medications: New budesonide 90 mcg/actuation (Pulmicort Flexhaler) 1 inh inhalation BID 1 ea 1RF Refilled albuterol sulfate 90 mcg/actuation (Ventolin HFA) 2 puffs inhalation Q6H PRN 8.5 grams 2RF bronchospasm J45.909 - Unspecified asthma, uncomplicated
[2024-07-15 15:30] VITALS: BP 110/76; PULSE 64; TEMP 36.3; O2SAT 94; BMI 32.7
== END 2024-07-15 16:13 | disposition home or self-care (01) ==
PROVIDERS: PCP Internal Medicine
DX: Z00.00 Encounter for general adult medical examination without abnormal findings (principal); J45.20 Mild intermittent asthma, uncomplicated; E66.9 Obesity, unspecified; Z68.32 Body mass index [BMI] 32.0-32.9, adult; D12.6 Benign neoplasm of colon, unspecified; N20.0 Calculus of kidney; N28.1 Cyst of kidney, acquired; Z13.220 Encounter for screening for lipoid disorders; Z23 Encounter for immunization

== ENCOUNTER → 2024-07-15 15:11 | Outpatient (BNVA) | payer OTHER, SELFPAY | PROVIDERS: PCP Internal Medicine | DX: Z00.00 Encounter for general adult medical examination without abnormal findings (principal); Z23 Encounter for immunization; J45.20 Mild intermittent asthma, uncomplicated; E66.9 Obesity, unspecified; Z68.32 Body mass index [BMI] 32.0-32.9, adult; N20.0 Calculus of kidney; N28.1 Cyst of kidney, acquired; Z86.0101 Personal history of adenomatous and serrated colon polyps | CPT/HCPCS: 90471; 90656; 96127 ==

== ENCOUNTER 2024-08-15 06:17 | Outpatient (REF) | payer OTHER, SELFPAY ==
[2024-08-15 06:42] LABS: MANUAL DIFF FLAG NO
[2024-08-15 07:27] LABS: Basophils Percent Auto 0.6 % (0-2); Eosinophils Absolute Auto 0.4 X10*3/uL (0.0-0.4); Eosinophils Percent Auto 7.8 % (0-4); Hematocrit 41.4 % (42.0-52.0); Imm Gran Abs Auto 0.01 X10*3/uL (0.00-0.03); Imm Gran Pct Auto 0.2 % (0.0-0.4); Lymphocytes Percent Auto 39.1 % (20-40); Mean Corpuscular HGB Conc 33.8 g/dl (31.0-36.0); Mean Corpuscular Hemoglobin 29.2 pg (27.0-33.0); Mean Corpuscular Volume 86.4 fL (80.0-98.0); Mean Platelet Volume 10.9 fL (9.4-12.4); Monocytes Absolute Auto 0.7 X10*3/uL (0.1-1.2); Monocytes Percent Auto 13.2 % (2-11); Neutrophils Percent Auto 39.1 % (45-73); Platelet Count 243 X10*3/uL (160-400); Red Blood Count 4.79 X10*6/uL (4.60-5.80); Red Cell Distribution Width 14.1 % (11.0-16.0)
[2024-08-15 08:01] LABS: Alanine Aminotransferase 20 U/L (0-40); Albumin Level 4.3 g/dL (3.5-5.0); Alkaline Phosphatase 85 U/L (39-117); Anion Gap 12 (12-20); Aspartate Amino Transferase 43 U/L (5-37); Bilirubin Total 0.7 mg/dL (0.0-1.0); Blood Urea Nitrogen 17 mg/dL (9-16); Calcium 9.4 mg/dL (8.4-10.2); Carbon Dioxide 27 mmol/L (22-29); Chloride 107 mmol/L (96-108); Cholesterol 159 mg/dL (<200); Estimated Glomerular Filt Rate > 60; Glucose Random 87 mg/dL (60-115); HDL Cholesterol 48 mg/dL (>40); LDL Cholesterol Calculated 102 mg/dL (<100); Potassium 4.4 mmol/L (3.3-5.1); Sodium 142 mmol/L (135-145); Total Protein 7.4 g/dL (6.5-8.0); Triglycerides 46 mg/dL (<150)
[2024-08-15 08:10] LABS: Free T4 (Free Thyroxine) 1.09 ng/dL (0.71-1.85); TSH reflex Free T4 1.81 uIU/mL (0.32-4.0); Vitamin D 25-OH Total 14.1 ng/mL (>30)
[2024-08-15 08:26] LABS: Folate 14.1 ng/mL (> or = 4.0); Vitamin B12 347 pg/mL (200-900)
[2024-08-19 19:09] LABS: PSA, Ultra Sensitive 0.25 ng/mL
== END 2024-08-15 06:18 | disposition home or self-care (01) ==
LOC: HO.LAB 06:17
PROVIDERS: PCP Internal Medicine
DX: Z00.00 Encounter for general adult medical examination without abnormal findings (principal); Z13.220 Encounter for screening for lipoid disorders; Z12.5 Encounter for screening for malignant neoplasm of prostate
CPT/HCPCS: 36415; 80053; 80061; 82306; 82607; 82746; 84153; 84439; 84443; 85025

== ENCOUNTER 2024-08-18 14:37 | Outpatient (AMB) | payer OTHER, SELFPAY ==
[2024-08-18 14:48] VITALS: BP 100/62; PULSE 71; O2SAT 93; BMI 32.8
--- NOTE | 2024-08-18 14:48 | A.OFFPC_ITS ---
Vital Signs 08/18/24 14:48 Height 5 ft 7 in Weight 209 lb 6 oz BMI 32.8 BP 100/62 Blood Pressure Location Lt brachial Position Sitting Pulse 71 Pulse Source Pulse Oximeter Pulse Oximetry (%) 93 Oxygen Delivery Method Room Air Intake Visit Reasons: 6 week f/u Field Director Required: No Accompanied by: Self / Same As Patient Allergies No Known Allergies Allergy (Verified 08/18/24 14:48) Medication List - Last Reconciled 08/18/24 by Diogenes Jin MD albuterol sulfate 90 mcg/actuation (Ventolin HFA) 2 puffs inhalation Q6H PRN budesonide 90 mcg/actuation (Pulmicort Flexhaler) 1 inh inhalation BID montelukast (Singulair) 10 mg PO BEDTIME pyridoxine (vitamin B6) 100 mg PO DAILY 90 days Tobacco use date assessed: 08/18/24 Dental Screening Dental Screen Date: 08/18/24 Did you have a dental visit in the last 12 months?: Yes Did you have a dental problem in the last 6 months where you did not have access to dental care?: No Was dental information given to patient?: Patient has dentist [facility] Medical History (Updated 08/18/24 @ 15:18 by Diogenes Jin MD) Tubular adenoma of colon Asthma Renal calculi Closed left ankle fracture Surgical History Hx of cystoscopy H/O colonoscopy Family History Mother No problems noted. Father Diabetes Prostate cancer Sister No problems noted. Father Prostate cancer Social History Housing: House Alcohol intake: current Alcohol intake frequency: holidays/special occasions only Patient Tobacco Use Status: Never used Tobacco e-Cigarette/Vaping Use: Never Used Second Hand Smoke Exposure: No service: No Current occupational status: employed Cognitive needs: No Hearing needs: No Vision needs: Yes Questionnaire PHQ-9 Over the last 2 weeks, how often have you been bothered by any of the following problems? 1. Little interest or pleasure in doing things: not at all 2. Feeling down, depressed, or hopeless: not at all 3. Trouble falling or staying asleep, or sleeping too much: not at all 4. Feeling tired or having little energy: not at all 5. Poor appetite or overeating: not at all 6. Feeling bad about yourself - or that you are a failure or have let yourself or your family down: not at all 7. Trouble concentrating on things, such as reading the newspaper or watching television: not at all 8. Moving or speaking so slowly that other people could have noticed. Or the opposite - being so fidgety or restless that you have been moving around a lot more than usual: not at all 9. Thoughts that you would be better off or of hurting yourself in some way: not at all Total score: 0 Depression Screening Interpretation: Negative Depression Screening Done: Yes Source: Developed by Drs. Gumaro Maldonado, Veronica Love, Blaise Humphrey and colleagues, with an educational eric from [employer]. Thrive Questionnaire Date Thrive assessed: 08/18/24 I am a: Patient What is your living situation today?: I have a steady place to live Within the past 12 months, did the food you bought not last and you didn't have the money to get more?: Never true Within the past 12 months, did you worry whether your food would run out before you got money to buy more?: Never true Do you have trouble paying for medicines?: No Do you have trouble getting transportation to medical appointments?: No Do you have trouble paying your heating and electricity bill?: No Do you have trouble taking care of your child, family member or friend?: No Do you have trouble with day-to-day activities such as bathing, preparing meals, shopping, managing finances, etc.?: No Are you currently unemployed and looking for a job?: No Are you interested in more education?: No Please select the resources that you would like help with: None Currently or been in a relationship where the following occur: No concerns reported THRIVE Score: 0 AUDIT C Alcohol Use Questionnaire (AUDIT-C) 1. How often do you have a drink containing alcohol?: Monthly or less 2. How many drinks containing alcohol do you have on a typical day when you are drinking?: 1 or 2 3. How often do you have six or more drinks on one occasion?: Never Total Score: 1 TYE-7 AMB Questionnaire TYE-7 Date TYE - 7 assessed: 08/18/24 Feeling nervous, anxious, or on edge: 0 = Not at all Not being able to stop or control worryin = Not at all Worrying too much about different things: 0 = Not at all Trouble relaxin = Not at all Being so restless that it is hard to sit still: 0 = Not at all Becoming easily annoyed or irritable: 0 = Not at all Feeling afraid as if something awful might happen: 0 = Not at all Total TYE-7 score (0-4 normal; 5-9 mild; 10-14 moderate; 15-21 severe): 0 Source: Developed by Drs. Gumaro Maldonado, Veronica Love, Blaise Humphrey and colleagues, with an educational eric from [employer]. Physical exam (Primary Care) Vital Signs: Last Vital Signs Pulse 71 08/18/24 14:48 BP 100/62 08/18/24 14:48 Pulse Ox 93 08/18/24 14:48 Oxygen Delivery Method Room Air 08/18/24 14:48 BMI result Body Mass Index 32.8 Tobacco/Smoking Status: Tobacco use Status Tobacco use date assessed 08/18/24 08/18/24 14:55 Patient Tobacco Use Status Never used Tobacco 08/18/24 14:55 e-Cigarette/Vaping Use Never Used 08/18/24 14:55 PHQ-9: PHQ-9 Score PHQ-9: Total score 0 08/18/24 15:18 Depression Screening Interpretation: Negative Thrive Assessment: Date of Thrive Assessment Date Thrive assessed 08/18/24 08/18/24 14:55 Currently or been in a relationship where the following occur: No concerns reported Const General: alert; No acute distress Eyes Conjunctivae: conjunctivae normal Resp Auscultation: clear to auscultation bilaterally Cardio Rate: regular rate Rhythm: regular rhythm GI Inspection: Yes normal to inspection Extrem General: Yes normal to inspection and No edema Coding Level of Care Code Tele Est Pt Level 4 (95183) Diagnoses Renal calculi N20.0 LFT elevation R79.89 Mild intermittent asthma, unspecified whether complicated J45.20 Asthma complication type: unspecified Asthma persistence: intermittent Asthma severity: mild Obesity (BMI 30-39.9) E66.9 Assessment & Plan Assessment & Plan (1) Renal calculi: Comment: Bilateral September 2022, extraction April 2024, b/l 06/2024 Code(s): N20.0 - Calculus of kidney Category: Medical Plan: Keep well hydrated. (2) LFT elevation: Code(s): R79.89 - Other specified abnormal findings of blood chemistry Category: Medical Plan: Patient was advised retesting an ultrasound of the liver. (3) Asthma: Comment: PFT September 2022 Code(s): J45.909 - Unspecified asthma, uncomplicated Category: Medical Qualifiers: Asthma complication type: unspecified Asthma persistence: intermittent Asthma severity: mild Qualified Code(s): J45.20 - Mild intermittent asthma, uncomplicated Plan: Continue with albuterol and Pulmicort (4) Obesity (BMI 30-39.9): Code(s): E66.9 - Obesity, unspecified Category: Medical Plan: Diet and exercise Plan History of Present Illness The patient is a 58-year-old male presenting primarily for the follow-up of nephrolithiasis and the review of recent laboratory tests. The patient has a history of bilateral renal calculi with an ultrasound in June showing multiple stones on the left and a significant stone in the right kidney. His hydration habits could be contributing factors and inadequacies have been discussed. A follow-up with urology is forthcoming. Other chronic problems include well-managed asthma, managed with inhalers and Singulair. Recent lab work reveals elevated liver enzymes, which necessitate further evaluation, although the patient denies regular alcohol use. His blood tests suggest allergies, with elevated eosinophils and vitamin D deficiency, aligning with regional trends. His blood sugar levels fall within normal ranges. Health Maintenance - Vitamin D supplementation advised for deficiency - Continued management of asthma with Albuterol, Pulmicort, and Singulair - Ultrasound of the liver is recommended due to elevated liver enzymes - Regular monitoring of blood glucose, cholesterol, and renal function - Encouraged increased fluid intake to prevent nephrolithiasis Social History - The patient reports drinking three glasses of water daily, which is suboptimal for kidney stone prevention. - He denies frequent alcohol consumption. - Engages in regular activity at work contributing to stable glucose levels. Review of Systems - Respiratory: Denies additional respiratory symptoms - General: Reports issues related to water intake Physical Exam - Respiratory- Breath sounds clear on auscultation Results - Labs: Normal complete blood count, normal thyroid function, elevated liver enzymes (43), increased eosinophils (7.8), vitamin D deficiency - Imaging: Previous ultrasound showing kidney stones; pending liver ultrasound Plan Monitoring and management of nephrolithiasis are priorities, with a specialist consultation for treatment of renal calculi. The patient is advised to increase fluid intake significantly to mitigate kidney stone formation. Asthma will continue to be managed with current medications, and an enhanced regimen for allergic symptoms has been recommended based on elevated eosinophils. The patient is to undergo further evaluation of liver function, including a liver ultrasound to understand enzyme elevation. Vitamin D deficiency will be addressed with supplementation. The patient's glucose and cholesterol levels are to remain under routine monitoring as they are currently stable. Patient was informed and verbally consented to the use of an ambient scribe for clinic note documentation during this visit. Discussion Notes I reviewed the patient's condition involving nephrolithiasis and provided recommendations for increased hydration. The importance of urological follow-up was emphasized to assess the treatment of kidney stones. We discussed the current allergic response and asthma's relation, for which I suggested continuing with Singulair and other prescribed inhalers. The concerns about elevated liver enzymes were addressed with a strategy that includes re- evaluation via ultrasound and potential hepatitis screening. I noted the patient's vitamin D deficiency and advised supplementation. On overall health maintenance implications, I have documented the need for consistent lifestyle adjustments and reiterated the importance of hydration, balanced nutrition, and the risks of inadequate physical activity. Patient Instructions - Increase daily water intake to help prevent kidney stone formation. - Continue current asthma medications: Albuterol, Pulmicort, and Singulair. - Take vitamin D supplements as advised. - Attend upcoming urology appointment for renal calculus management. - Follow through with scheduled liver ultrasound and blood tests for further evaluation. - Report any new symptoms, especially related to liver health or asthma exacerbation. - Maintain regular activity levels and avoid sugary and processed foods to support balanced glucose levels. - Return for follow-up in three months or sooner if conditions worsen. Orders: Orders US abdomen complete Today R79.89 - Other specified abnormal findings of blood chemistry Liver Panel 1 Month R79.89 - Other specified abnormal findings of blood chemistry Hepatitis B,C Profile 1 Month R79.89 - Other specified abnormal findings of blood chemistry Medications: New montelukast (Singulair) 10 mg PO BEDTIME 30 tabs 3RF J45.20 - Mild intermittent asthma, uncomplicated
== END 2024-08-18 15:33 | disposition home or self-care (01) ==
LOC: HO.HMCH 14:38
PROVIDERS: PCP Internal Medicine; Visit Provider Internal Medicine
DX: N20.0 Calculus of kidney (principal); R79.89 Other specified abnormal findings of blood chemistry; E66.9 Obesity, unspecified; Z68.32 Body mass index [BMI] 32.0-32.9, adult; J45.20 Mild intermittent asthma, uncomplicated

== ENCOUNTER 2024-08-26 14:59 | Outpatient (AMB) | payer OTHER, SELFPAY ==
--- NOTE | 2024-08-26 15:06 | MHC.OFFVIS ---
Intake Visit Reasons: Followup/US Intake Note: Patient is present for US F/U Urology Medication:VITAMIN B6 Antibiotic Allergy:NONE Blood Thinner:NONE Manager Erp Required: No Allergies No Known Allergies Allergy (Verified 08/26/24 15:07) HPI Comments Details: Lorne is a pleasant male. He is a patient of Dr. Jin. He seen for the following urologic conditions - 05/27 right ureteroscopy with laser lithotripsy Accompanied by Nephrolithiasis Prior procedure last year Has bilateral small stones Discussed procedure with bilateral ureteroscopy Stone composition - 04/27 calcium oxalate monohydrate 95% Imaging - 07/29 renal US right 8 mm calculus is seen in the lower pole - The left kidney 4.6 mm calculus is seen in the upper pole. 4 mm calculus is seen in the midpole. 4.4 mm calculus is seen in the lower pole. A 2nd calculus is seen in the lower pole measuring 3.6 mm Plan bilateral ureteroscopy with laser lithotripsy stent placement PSA 09/25 0.3 PFSH Medical History (Updated 08/18/24 @ 15:18 by Diogenes Jin MD) Tubular adenoma of colon Asthma Renal calculi Closed left ankle fracture Surgical History Hx of cystoscopy H/O colonoscopy Family History Mother No problems noted. Father Diabetes Prostate cancer Sister No problems noted. Father Prostate cancer Social History Housing: House Alcohol intake: current Alcohol intake frequency: holidays/special occasions only Patient Tobacco Use Status: Never used Tobacco e-Cigarette/Vaping Use: Never Used Second Hand Smoke Exposure: No service: No Current occupational status: employed Cognitive needs: No Hearing needs: No Vision needs: Yes Review of Systems Const Denies chills and Denies fever(s) Card Reports no additional complaints and Denies syncope Resp Denies cough GI Denies abdominal pain and Denies heartburn Reports as per HPI and Denies change in libido Neuro Denies syncope Psych Denies change in libido Endo Denies change in libido Physical Exam Const General: cooperative, healthy appearing, comfortable and no acute distress Orientation/consciousness: patient oriented x3 HEENT Face and sinus: Yes normal facial exam Mouth: moist mucous membranes Neck Neck: Yes normal visual inspection, Yes full ROM and Yes trachea midline Chest Chest palpation & inspection: normal inspection of the chest Resp Effort & Inspection: normal respiratory effort, able to speak in complete sentences and no respiratory distress GI Inspection: Yes normal to inspection Back/Spine/Pelvis Cervical Spine: normal cervical lordosis Thoracic/Lumbar Spine: thoracic and lumbar spine normal to inspection Skin General skin exam: no rashes or lesions noted Neuro General: patient oriented x3, gait normal, tone normal and moves all extremities Extrem General: Yes normal to inspection and Yes capillary refill normal Assessment & Plan Assessment & Plan (1) Renal calculi: Comment: Bilateral September 2022, extraction April 2024, b/l 06/2024 Code(s): N20.0 - Calculus of kidney Category: Medical Plan Ureteroscopy We discussed the nature of the decision and reasonable alternatives for performing ureteroscopy. Options such as medical therapy were discussed. Interventions include chemical dissolution, ESWL, ureteroscopy with laser lithotripsy and stent placement, PCNL. The relative uncertainties and benefits related to each alternate procedure were adequately discussed. General surgical risks including, but not limited to - pain, bleeding, infection, myocardial infarction, pulmonary embolus, deep vein thrombosis and cerebrovascular accident which may result in further hospitalization were discussed. Full disclosure of the procedure as well as all major risks, benefits and complications were discussed including but not limited to damage to the urethra, bladder and kidney infection, damage to the ureter, stent migration or malposition, scarring to the renal pelvis, remnant stone fragments, subsequent stone passage with need for secondary procedures. The overall secondary procedure rate is approximately 10-15%. The overall clearance rate is approximately 90-95%. Success of the procedure in the short-term does not necessarily guarantee that long-term success will be maintained. Suitable follow up will need to be maintained. The patient showed understanding of discussion and wishes to proceed with - cystoscopy, retrograde, ureteroscopy, possible lithotripsy/stone basketing and stent on the bilateral side Medications: New allopurinol 100 mg PO DAILY 90 days 90 tabs 1RF N20.0 - Calculus of kidney pyridoxine (vitamin B6) 50 mg PO DAILY 90 days 90 tabs 1RF N20.0 - Calculus of kidney Discontinued pyridoxine (vitamin B6) Discontinued Reason: Patient Completed Course 100 mg PO DAILY 90 days 90 tabs 3RF N20.0 - Calculus of kidney Patient Instructions: This note is constructed using voice recognition software. While every effort has been made to ensure accuracy public health analyst errors may have been included. Imaging studies, laboratory and physical exam results were discussed and reviewed in detail. No major barriers to patient understanding were identified. An opportunity to ask questions regarding the treatment plan was provided. All questions were answered. The patient expressed understanding and agreement with the above treatment plan. The patient is aware they should contact our office by phone for worsening of their current condition or the appearance of new urologic symptoms. Compliance is encouraged with any medications and followup testing that is ordered. It is a privilege to participate in the urologic care of your patient. If you have any questions or concerns regarding treatment for the above conditions, or other urologic issues, please do not hesitate to contact me. The office telephone contact is [phone]. Sincerely, Dr Arnie Mccurdy MD, [facility] - Urology Compassionate Specialist Care for the Genitourinary System Coding Level of Care Code Est Pt Level 3 (37783) Diagnoses Renal calculi N20.0
== END 2024-08-26 15:45 | disposition home or self-care (01) ==
LOC: HO.HUSH 15:00
PROVIDERS: PCP Internal Medicine; Visit Provider Urology
DX: N20.0 Calculus of kidney (principal)
CPT/HCPCS: 99213

== ENCOUNTER → 2024-08-26 14:59 | Outpatient (BNVA) | payer OTHER, SELFPAY | PROVIDERS: PCP Internal Medicine; Visit Provider Urology ==

== ENCOUNTER 2024-08-27 16:11 | Outpatient (REF) | payer OTHER, SELFPAY | END 2024-08-27 16:12 | disposition home or self-care (01) | LOC: HO.LNP 16:11 | PROVIDERS: Visit Provider Urology | DX: N20.0 Calculus of kidney (principal) | CPT/HCPCS: 82365; 88300 ==

== ENCOUNTER 2024-09-26 08:02 | Outpatient (REF) | payer OTHER, SELFPAY ==
--- NOTE | ~2024-09-26 | US_ITS ---
EXAMINATION: US ABDOMEN COMPLETE CLINICAL INFORMATION: Abnormal blood chemistry.. Elevated LFTs. COMPARISON: CT kidneys 02/27/2024 TECHNIQUE: Real-time imaging of the abdominal viscera. FINDINGS: PANCREAS: Visualized portions are unremarkable. ABDOMINAL AORTA: The proximal, mid, and distal segments are normal in caliber. INFERIOR VENA CAVA: Visualized portions are normal. LIVER: The liver is normal in size measuring 15.7 cm. The liver contour is normal. Parenchymal echogenicity is normal. No focal hepatic lesion. There is no intrahepatic biliary duct dilatation seen. There are 2 anechoic lesions left hepatic lobe measuring 1.1 x 0.8 x 0.9 cm and 2.8 x 1.9 x 2.7 cm suggestive of simple cyst no solid lesion or intrahepatic duct dilatation seen. GALLBLADDER: The gallbladder is physiologically distended without evidence of stones, sludge, polyps, wall thickening or pericholecystic fluid. All bladder wall thickness is 0.2 cm. COMMON BILE DUCT: Normal in caliber measuring 0.5 cm in diameter. RIGHT KIDNEY: The kidney measures 13.0 cm in maximum dimension. There are several anechoic cyst areas largest cyst in the upper pole measures 4.2 x 3.7 x 3.8 cm. There is an echogenic stones with the largest stone in lower pole measuring 0.4 x 0.2 x 0.4 cm. In mid pole calculi measures 2 mm. No caliectasis or hydronephrosis seen. LEFT KIDNEY: Left kidney measures 12.2 cm in length. There is anechoic cyst mid pole left kidney measuring 1.7 x 1.2 x 1.3 cm. There is an echogenic stone upper pole measuring 0.5 x 0.3 x 0.6 cm. dimension. SPLEEN: The spleen measures 9.4 cm in maximum dimension. FREE FLUID: None. US/US abdomen complete IMPRESSION: Bilateral renal cysts and bilateral nonobstructive radiopaque calculi. No hydronephrosis. Left lobe hepatic cysts as described above. No solid lesion seen. Spleen, gallbladder and visualized pancreas appear unremarkable. Electronically signed by: Franklin Neff MD 09/29/2024 09:23 AM EDT
== END 2024-09-26 08:03 | disposition home or self-care (01) ==
LOC: HO.US 08:02
PROVIDERS: PCP Internal Medicine; Visit Provider Internal Medicine
DX: R79.89 Other specified abnormal findings of blood chemistry (principal)
CPT/HCPCS: 76700

== ENCOUNTER → 2024-09-26 08:03 | Outpatient (BNV) | payer OTHER, SELFPAY | PROVIDERS: PCP Internal Medicine; Visit Provider Radiology Diagnostic Radiology | DX: N28.1 Cyst of kidney, acquired (principal); R79.89 Other specified abnormal findings of blood chemistry | CPT/HCPCS: 76700 ==

== ENCOUNTER 2024-11-24 06:04 | Day surgery (SDC) | payer OTHER, SELFPAY ==
[2024-11-20 08:05] VITALS: BMI 32.7
[2024-11-24] VITALS (7 sets, daily range): BP systolic 112–156; BP diastolic 73–80; PULSE 63–80; RESP 12–16; TEMP 36.2–36.8; O2SAT 95–98; BMI 32.1
--- NOTE | ~2024-11-24 | FL_ITS ---
EXAMINATION: FL GUIDANCE ONLY HISTORY: cystoscopy, ureteroscopy, retro, laser with stent COMPARISON: Relation is made with an abdominal ultrasound dated 09/26/2024. TECHNIQUE: Fluoroscopy time: 46.3 seconds. Cumulative Dose: 18.70 mGy. Images: 4. FINDINGS: Fluoroscopic spot films from bilateral retrograde ureterograms demonstrate normal-appearing bilateral renal collecting systems. The proximal portion of a left nephroureteral stent is noted. FL/FL guidance in OR IMPRESSION: Fluoroscopy during procedure. Please see procedure report for additional information. Electronically signed by: Gumaro Church MD 11/24/2024 08:55 AM EDT
[2024-11-24] MEDS: Lactated Ringers 1,000 ML 80 ML IVCONT (06:55)
--- NOTE | 2024-11-24 07:27 | HO.ANESPROP2 ---
HPI - Anesthesia Eval Consult details Narrative: cysto stent PMFSH Active Problems Active Problems: All Active Problems LFT elevation (Acute) Screening for hypercholesterolemia (Acute) Renal cyst (Acute) Tinea cruris (Acute) Annual physical exam (Acute) Asthma (Acute) Colon cancer screening (Acute) Obesity (BMI 30-39.9) (Acute) Tubular adenoma of colon (Acute) Renal calculi (Acute) Past Medical History Medical History Tubular adenoma of colon Asthma Renal calculi Closed left ankle fracture Family History Family History Mother No problems noted. Father Diabetes Prostate cancer Sister No problems noted. Father Prostate cancer Family history of problems with anesthesia: No Surgical History Surgical History Hx of cystoscopy H/O colonoscopy History of Problems with Anesthesia: No Social History Social History Housing: House Are you a primary district manager primary care sales to a significant other at home: No Do you presently have visiting nurse or other home services: No Alcohol intake: current Alcohol intake frequency: does not drink Patient Tobacco Use Status: Never used Tobacco e-Cigarette/Vaping Use: Never Used Second Hand Smoke Exposure: No Use of substances other than those prescribed or required for medical reasons: No Have you been hit, kicked, punched, or otherwise hurt by someone within the past year? If so, by whom?: No Are you DNR?: No Advance Directives: No Advance Directives Information Provided: Yes Poor oral hygiene: No service: No Current occupational status: employed Cognitive needs: No Hearing needs: No Vision needs: Yes Meds Allergies Allergy/AdvReac Type Severity Reaction Status Date / Time No Known Allergies Allergy Verified 11/24/24 06:22 Active Medications: Current Medications Lactated Ringer's (Lr) 1,000 mls @ 80 mls/hr IVCONT .[id number] TRISTA Last Admin: 11/24/24 06:55 Dose: 80 mls/hr Exam Height,Weight and Vital Signs: Height 5 ft 7 in Weight 93 kg Last Vital Signs Temp 98.2 F 11/24/24 06:23 Pulse 80 11/24/24 06:23 Resp 12 11/24/24 06:23 BP 156/80 H 11/24/24 06:23 Pulse Ox 96 11/24/24 06:23 O2 Del Method Room Air 11/24/24 06:23 Airway Mallampati Class: II TM Dist: >3cm Neck ROM: Full Heart: rrr Lungs: cta Assessment and Plan Assessment Anesthesia Assessment: Anesthesia Plan Discussed and Chart Reviewed Final Anesthetic Review Family History of Problems with Anesthesia: No History of Problems with Anesthesia: No NPO: Yes ASA Class: II Final Preanesthetic Review: No Changes in Pt Med Stat, Meds/Allgs Chart Reviewed, Consent Obtained/Reviewed and Anes Risks/Benef Reviewed Patient Risk: Low Procedure Risk: Low Anesthetic Plan Anesthetic Plan: GA Disposition: Standard PACU
--- NOTE | 2024-11-24 07:28 | MHC.SHP ---
Pre-Procedural Eval Section A - 24 Hr Update-Section A only Date of Service: 11/24/24 The patient is an INPATIENT: No Changes since office visit: No Cold of Flu in the past 2 weeks, No New Medical Problems, No Changes in Medication and No Patient answered all questions The patient has been examined within 24 hours of the surgical procedure. The History & Physical has been completed within 30 days and I have reviewed it.: Yes Section B - Complete if H&P > 30 days Chief Complaint: Calculus of kidney Details of Present Illness: bilateral ureteroscopy Allergies: Allergies Allergy/AdvReac Type Severity Reaction Status Date / Time No Known Allergies Allergy Verified 11/24/24 06:22 Review of Systems Sugical H&P ROS: Negative: Constitution, Cardiovascular, Respiratory, Neurological, Psychiatric, Hem-Onc, Allergic/Immunologic, Gastrointestinal, Genitourinary, Musculoskeletal, Integumentary, Endocrine and Eyes/Ears/Nose/Throat Exam Surgical H&P Exam: Normal: HEENT, Normal: Heart, Normal: Lungs, Normal: Extremities, Normal: Abdomen, Normal: Skin and Normal: Neurological Plan Diagnosis/Plan: Unchanged I have reviewed the history and physical and performed a pertinent physical examination on my patient. No changes have occurred unless specified. Time Spent With Patient Time: Total time managing care of this patient today ____ minutes.
[2024-11-24] MEDS: levoFLOXacin/D5W 500 MG/100 ML PIGGYBACK 100 MG IV (07:55)
[2024-11-24] MEDS: Acetaminophen 1,000 MG/100 ML PIGGYBACK 400 MG IV (08:10)
--- NOTE | 2024-11-24 08:57 | P.OP_ITS ---
Operative Note Operative Note Date of Service: 11/24/24 Narrative: PreOperative Diagnosis: bilateral renal stones Post Operative Diagnosis: bilateral renal stone Procedure: - cystoscopy, right retrograde - right dilatation of ureteric orifice under fluoroscopy - right ureteroscopy, stone basketing - with steerable vacuum aspiration - left retrograde - left dilatation of ureteric orifice under fluoroscopy - left ureteroscopy, laser lithotripsy, with steerable vacuum aspiration - left stent placement Surgeon: Dr Arnie Mccurdy Anesthesia: General Indications for procedure: bilateral renal stones, imaging showed cluster of stones on the right side and individual stones 6 mm on the left side Procedure: After informed consent was verified patient was brought to the operating placed in supine position. Anesthesia was administered per protocol. Patient was placed in modified dorsal lithotomy position and prepped and draped in a sterile fashion. Safety pause time-out and side of surgery confirmed. Antibiotics confirmed. A 22 Vincentian cystoscope was inserted per urethra. The urethra and bladder were normal in their entirety. Both ureteric orifices were in normal position. The right ureteric orifice was cannulated and a retrograde examination was performed. No clear filling defects seen. A Sensor guidewire was placed up to the level of the renal pelvis under fluoroscopy. The rigid cystoscope was removed and the inner cannula of ureteric access sheath was used under fluoroscopy to dilate the ureteric orifice. The steerable vacuum ureteric access sheath was placed and the inner cannula with access wire removed. The digital flexible ureteral scope was placed. Cluster of stones found encountered at the lower pole. Three of the stones were able to be removed with a ZeroTip basket. Other stone debris was able to be removed with the steerable vacuum aspiration sheath. A decision was made not to place a stent on the right side. The access sheath was removed. A 22 Vincentian cystoscope was inserted per urethra. The urethra and bladder were normal in their entirety. Both ureteric orifices were in normal position. The Left ureteric orifice was cannulated and a retrograde examination was performed. no clear filling defects seen. A Sensor guidewire was placed up to the level of the renal pelvis under fluoroscopy. The rigid cystoscope was removed and the inner cannula of ureteric access sheath was used under fluoroscopy to dilate the ureteric orifice. The steerable vacuum ureteric access sheath was placed and the inner cannula with access wire removed. The digital flexible ureteral scope was placed. a 6 mm stone was encountered in the upper pole. Using the 272 nm holmium laser fiber the stone was broken into small pieces and stone debris was able to be removed with the steerable vacuum aspiration sheath. The kidney was examined in its entirety. Some other stone debris was encountered in the lower pole which was able to be removed with the steerable vacuum aspiration sheath. A decision was made not to place a stent on the right side. The access sheath was removed. At the completion of the stone procedure a Sensor wire was placed back into the renal pelvis. The rigid cystoscope was backloaded over the wire and advanced into the bladder. A 6 Vincentian by 28 cm double-J stent was placed into the renal pelvis and bladder under a combination of fluoroscopy and direct visualization. Proximal positioning of the stent was confirmed using fluoroscopy. The bladder was emptied. The patient tolerated the procedure well and was extubated in the operating room, and transferred in stable condition to the recovery area. Pathology: Stones Drains: [] [facility] code [id number] describes cystourethroscopy, with ureteroscopy and/or pyeloscopy, with lithotripsy, and ureteral catheterization for steerable vacuum aspiration of the kidney, collecting system, ureter, bladder, and urethra if applicable (must use a steerable ureteral catheter).
[2024-11-24] MEDS: Phenazopyridine HCL 100 MG TABLET PO (09:28)
[2024-11-24] MEDS: Ketorolac Tromethamine 15 MG/ML VIAL IVPUSH (09:30)
== END 2024-11-24 10:10 | disposition home or self-care (01) ==
PROVIDERS: PCP Internal Medicine; Visit Provider Urology
PROC: (CPT 52356; principal; 2024-11-24 07:30)
DX: N20.0 Calculus of kidney (principal); Z87.442 Personal history of urinary calculi; Z80.42 Family history of malignant neoplasm of prostate; J45.909 Unspecified asthma, uncomplicated; Z79.899 Other long term (current) drug therapy
CPT/HCPCS: 52356; 52352; 82365; 88300; C1758; C1769; C2617; J0131; J1100; J1885; J1956; J2003; J2405; J2704; J3010; Q9967

== ENCOUNTER → 2024-11-24 06:04 | Outpatient (BNV) | payer OTHER, SELFPAY | PROVIDERS: PCP Internal Medicine; Visit Provider Urology | DX: N20.0 Calculus of kidney (principal) | CPT/HCPCS: 52352; 52356; 74420 ==

== ENCOUNTER 2024-12-02 12:56 | Outpatient (AMB) | payer OTHER, SELFPAY ==
--- NOTE | 2024-12-02 12:59 | MHC.OFFVIS ---
Intake Visit Reasons: Stent removal Intake Note: Patient is present for Left cysto stent removal ESWL 11/24/24 Urology Medication:allopurinol, pyridium, tamsulosin Antibiotic Allergy:NONE Blood Thinner:NONE Extermination Supervisor Required: No Accompanied by: Self / Same As Patient Allergies No Known Allergies Allergy (Verified 12/02/24 13:01) HPI Comments Details: Lorne is a pleasant male. He is a patient of Dr. Jin. He seen for the following urologic conditions - 05/27 right ureteroscopy with laser lithotripsy Here for stent removal Re prescribed allopurinol and vitamin B6 Three-month follow-up imaging at 24:00 hour urine Nephrolithiasis Has bilateral small stones Discussed procedure with bilateral ureteroscopy Stone composition - 04/27 calcium oxalate monohydrate 95% Imaging - 07/29 renal US right 8 mm calculus is seen in the lower pole - The left kidney 4.6 mm calculus is seen in the upper pole. 4 mm calculus is seen in the midpole. 4.4 mm calculus is seen in the lower pole. A 2nd calculus is seen in the lower pole measuring 3.6 mm Intervention - 11/26 bilateral ureteroscopy with laser lithotripsy PSA 09/25 0.3 PFSH Medical History Tubular adenoma of colon Asthma Renal calculi Closed left ankle fracture Surgical History Hx of cystoscopy H/O colonoscopy Family History Mother No problems noted. Father Diabetes Prostate cancer Sister No problems noted. Father Prostate cancer Social History Housing: House Are you a primary director critical care to a significant other at home: No Do you presently have visiting nurse or other home services: No Alcohol intake: current Alcohol intake frequency: does not drink Patient Tobacco Use Status: Never used Tobacco e-Cigarette/Vaping Use: Never Used Second Hand Smoke Exposure: No service: No Current occupational status: employed Cognitive needs: No Hearing needs: No Vision needs: Yes Office Procedures Cystoscopy Consent Discussed risk and benefit or proposed procedure with the patient. Information consent for procedure given to the patient. Discussed technical aspects, risks, benefits and alternatives in full. Addressed all of the patient's questions and concerns regarding the procedure. The patient demonstrated knowledge and understanding. They wish to proceed with this procedure. Preparation The patient was prepped in the usual manner. A transfusion aide was present and in the room. Genitalia was prepped with betadine solution in a sterile manner. Lidocaine Jelly 2% was placed into the urethra and 16Fr flexible Olympus cystoscope was inserted into the meatus after adequate lubrication. Procedure A well lubricated 16 Rwandan cystoscope was placed No abnormality noted of urethra during placement Indwelling stent seen within bladder emerging from left ureteric orifices The stent was grasped with a 3 prong grasper and removed without difficulty The patient tolerated the procedure well [id number] with stent removal DISPOSABLE SCOPE URO-G FLEXIBLE SCOPE Procedure code (CPT) selection complete Office Meds lidocaine HCl 2 % mucosal jelly in applicator Performing Provider: Arnie Mccurdy MD Performing Location: [facility] Administered by: Elizabeth Bruce RN on 12/02/24 13:18 Dose Route Admin Location Dispensed Lot Number Expiration Date NDC Senior Bioinformatics Scientist 10 mL intra-urethral 10 mL nitrofurantoin monohydrate/macrocrystals 100 mg capsule Performing Provider: Arnie Mccurdy MD Performing Location: [facility] Administered by: Elizabeth Bruce RN on 12/02/24 13:18 Dose Route Admin Location Dispensed Lot Number Expiration Date NDC Senior Bioinformatics Scientist 100 mg PO 1 cap naproxen 500 mg tablet Performing Provider: Arnie Mccurdy MD Performing Location: [facility] Administered by: Elizabeth Bruce RN on 12/02/24 13:18 Dose Route Admin Location Dispensed Lot Number Expiration Date NDC Senior Bioinformatics Scientist 500 mg PO 1 tab Results AMB Urinalysis, Automated UA Leukoctes 70 Santa/uL Last Edit by Niki Loomis MA on 12/02/24 15:27 UA Nitrite Negative Last Edit by Niki Loomis MA on 12/02/24 15:27 UA Urobilinogen 17 mg/dL Last Edit by Niki Loomis MA on 12/02/24 15:27 UA Protein 3.0 mg/dL Last Edit by Niki Loomis MA on 12/02/24 15:27 UA pH 6.0 Last Edit by Niki Loomis, MA on 12/02/24 15:27 UA Blood 200 Madi/uL Last Edit by Niki Loomis, MA on 12/02/24 15:27 UA Specific [place] 1.020 Last Edit by Niki Loomis, MA on 12/02/24 15:27 UA Ketone Negative Last Edit by Niki Loomis, MA on 12/02/24 15:27 UA Bilirubin 0 mg/dL Last Edit by Niki Loomis, MA on 12/02/24 15:27 UA Glucose 0 mg/dL Last Edit by Niki Loomis, MA on 12/02/24 15:27 Results Reviewed Results Reviewed: Laboratory Last Values Urine pH (Auto) 6.0 12/02/24 15:04 Specific [place] (Auto) 1.020 12/02/24 15:04 Urine Protein (Auto) 3.0 mg/dL 12/02/24 15:04 Glucose (UA)(Auto) 0 mg/dL 12/02/24 15:04 Urine Ketones (Auto) Negative 12/02/24 15:04 Urine Blood (Auto) 200 Madi/uL 12/02/24 15:04 Urine Nitrite (Auto) Negative 12/02/24 15:04 Urine Bilirubin (Auto) 0 mg/dL 12/02/24 15:04 Urine Urobilinogen (Auto) 17 mg/dL 12/02/24 15:04 Leukocyte Esterase (Auto) 70 Santa/uL 12/02/24 15:04 Assessment & Plan Assessment & Plan (1) Renal calculi: Comment: Bilateral September 2022, extraction April 2024, b/l 06/2024, September 2024 Code(s): N20.0 - Calculus of kidney Category: Medical Plan Three-month follow-up Urorisk and renal ultrasound Orders: Orders AMB Cystoscopy Today N20.0 - Calculus of kidney, N28.1 - Cyst of kidney, acquired US renal BI 3 Months N20.0 - Calculus of kidney AMB Urinalysis Automated Today Z13.9 - Encounter for screening, unspecified URORISK Today N20.0 - Calculus of kidney Medications: New allopurinol 100 mg PO DAILY 90 tabs 1RF 90 days N20.0 - Calculus of kidney pyridoxine (vitamin B6) 50 mg PO DAILY 90 tabs 1RF 90 days N20.0 - Calculus of kidney Patient Instructions: This note is constructed using voice recognition software. While every effort has been made to ensure accuracy healthcare administration intern errors may have been included. Imaging studies, laboratory and physical exam results were discussed and reviewed in detail. No major barriers to patient understanding were identified. An opportunity to ask questions regarding the treatment plan was provided. All questions were answered. The patient expressed understanding and agreement with the above treatment plan. The patient is aware they should contact our office by phone for worsening of their current condition or the appearance of new urologic symptoms. Compliance is encouraged with any medications and followup testing that is ordered. It is a privilege to participate in the urologic care of your patient. If you have any questions or concerns regarding treatment for the above conditions, or other urologic issues, please do not hesitate to contact me. The office telephone contact is [phone]. Sincerely, Dr Arnie Mccurdy MD, [facility] - Urology Compassionate Specialist Care for the Genitourinary System Coding Level of Care Code Est Pt Level 3 (52970) Diagnoses Renal calculi N20.0 CPT Codes Cystoscopy - CPT: 43542-[id number] with stent removal ([id number])
== END 2024-12-02 13:50 | disposition home or self-care (01) ==
LOC: HO.HUSH 12:57
PROVIDERS: PCP Internal Medicine; Visit Provider Urology
DX: N20.0 Calculus of kidney (principal); Z96.0 Presence of urogenital implants; Z13.9 Encounter for screening, unspecified
CPT/HCPCS: 52310; 99213

== ENCOUNTER → 2024-12-02 12:56 | Outpatient (BNVA) | payer OTHER, SELFPAY | PROVIDERS: PCP Internal Medicine; Visit Provider Urology | DX: N20.0 Calculus of kidney (principal) | CPT/HCPCS: 52310; 81003 ==

== ENCOUNTER 2025-02-27 10:58 | Outpatient (REF) | payer OTHER, SELFPAY ==
--- NOTE | ~2025-02-27 | US_ITS ---
CLINICAL HISTORY: N20.0 - Calculus of kidney US renal with Color Doppler Comparison: US/SR - US ABDOMEN - 09/26/24 08:24 EDT US - US RENAL BI - 06/30/24 08:08 EST US/IN/SR - US RENAL BI - 09/11/22 14:08 EDT Findings: Right kidney normal size and echotexture, 13.5 cm length. No hydronephrosis. Normal color flow. Renal cortical cysts measuring 3.8 x 3.4 x 3.4 cm upper pole stable. Adjacent renal cortical cyst measuring 1.1 cm and midpole renal cortical cyst measuring 1.3 x 1.1 x 1.0 cm. Left kidney normal size and echotexture, 12.2 cm length. No hydronephrosis or mass. Normal color flow. Nonobstructing caliceal stones as follows: Upper pole 4 x 3 x 2 mm, midpole 5 x 4 x 3 mm, lower pole 6 x 7 x 5 mm. Impression: 1. Nephrolithiasis on the left without evidence of obstructive uropathy. 2. Renal cortical cysts on the right. This document has been electronically signed by: Bryce Samson MD on 02/28/2025 16:02:22
== END 2025-02-27 10:59 | disposition home or self-care (01) ==
LOC: HO.HMGCX 10:58
PROVIDERS: PCP Internal Medicine; Visit Provider Urology
DX: N20.0 Calculus of kidney (principal)
CPT/HCPCS: 76775

== ENCOUNTER → 2025-02-27 11:00 | Outpatient (BNV) | payer OTHER, SELFPAY | PROVIDERS: PCP Internal Medicine; Visit Provider Radiology Diagnostic Radiology | DX: N20.0 Calculus of kidney (principal); N28.1 Cyst of kidney, acquired | CPT/HCPCS: 76775 ==

== ENCOUNTER 2025-03-10 13:22 | Outpatient (AMB) | payer OTHER, SELFPAY ==
--- NOTE | 2025-03-10 13:24 | MHC.OFFVIS ---
Intake Visit Reasons: /US Intake Note: Patient is present for /US Urology Medication:allopurinol, pyridium, tamsulosin Antibiotic Allergy:NONE Blood Thinner:NONE Tear Down Man Required: No Accompanied by: Self / Same As Patient Allergies No Known Allergies Allergy (Verified 03/10/25 13:25) HPI Comments Details: Lorne is a pleasant male. He is a patient of Dr. Jin. He seen for the following urologic conditions - 05/27 right ureteroscopy with laser lithotripsy Stone follow-up Currently on combination vitamin B6 and allopurinol Imaging stable Six-month follow-up Litholink and KUB Continue B6 and allopurinol Nephrolithiasis Has bilateral small stones Discussed procedure with bilateral ureteroscopy Stone composition - 04/27 calcium oxalate monohydrate 95% Imaging - 07/29 renal US right 8 mm calculus is seen in the lower pole - The left kidney 4.6 mm calculus is seen in the upper pole. 4 mm calculus is seen in the midpole. 4.4 mm calculus is seen in the lower pole. A 2nd calculus is seen in the lower pole measuring 3.6 mm Intervention - 11/26 bilateral ureteroscopy with laser lithotripsy PSA 09/25 0.3 PFSH Medical History Tubular adenoma of colon Asthma Renal calculi Closed left ankle fracture Surgical History Hx of cystoscopy H/O colonoscopy Family History Mother No problems noted. Father Diabetes Prostate cancer Sister No problems noted. Father Prostate cancer Social History Housing: House Are you a primary health and social care teacher to a significant other at home: No Do you presently have visiting nurse or other home services: No Alcohol intake: current Alcohol intake frequency: does not drink Patient Tobacco Use Status: Never used Tobacco e-Cigarette/Vaping Use: Never Used Second Hand Smoke Exposure: No service: No Current occupational status: employed Cognitive needs: No Hearing needs: No Vision needs: Yes Review of Systems Const Denies chills and Denies fever(s) Card Reports no additional complaints and Denies syncope Resp Denies cough GI Denies abdominal pain and Denies heartburn Reports as per HPI and Denies change in libido Neuro Denies syncope Psych Denies change in libido Endo Denies change in libido Physical Exam Const General: cooperative, healthy appearing, comfortable and no acute distress Orientation/consciousness: patient oriented x3 HEENT Face and sinus: Yes normal facial exam Mouth: moist mucous membranes Neck Neck: Yes normal visual inspection, Yes full ROM and Yes trachea midline Chest Chest palpation & inspection: normal inspection of the chest Resp Effort & Inspection: normal respiratory effort, able to speak in complete sentences and no respiratory distress GI Inspection: Yes normal to inspection Back/Spine/Pelvis Cervical Spine: normal cervical lordosis Thoracic/Lumbar Spine: thoracic and lumbar spine normal to inspection Skin General skin exam: no rashes or lesions noted Neuro General: patient oriented x3, gait normal, tone normal and moves all extremities Extrem General: Yes normal to inspection and Yes capillary refill normal Assessment & Plan Assessment & Plan (1) Renal calculi: Comment: Bilateral September 2022, extraction April 2024, b/l 06/2024, September 2024 Code(s): N20.0 - Calculus of kidney Category: Medical Plan Six-month follow-up Orders: Orders XR KUB 6 Months N20.0 - Calculus of kidney URORISK 6 Months N20.0 - Calculus of kidney Medications: Refilled allopurinol 100 mg PO DAILY 90 tabs 1RF 90 days N20.0 - Calculus of kidney pyridoxine (vitamin B6) 50 mg PO DAILY 90 tabs 1RF 90 days N20.0 - Calculus of kidney Discontinued tamsulosin Discontinued Reason: Patient Completed Course 0.4 mg PO BEDTIME 14 days 14 caps 0RF Patient Instructions: This note is constructed using voice recognition software. While every effort has been made to ensure accuracy grating machine operator errors may have been included. Imaging studies, laboratory and physical exam results were discussed and reviewed in detail. No major barriers to patient understanding were identified. An opportunity to ask questions regarding the treatment plan was provided. All questions were answered. The patient expressed understanding and agreement with the above treatment plan. The patient is aware they should contact our office by phone for worsening of their current condition or the appearance of new urologic symptoms. Compliance is encouraged with any medications and followup testing that is ordered. It is a privilege to participate in the urologic care of your patient. If you have any questions or concerns regarding treatment for the above conditions, or other urologic issues, please do not hesitate to contact me. The office telephone contact is [phone]. Sincerely, Dr Arnie Mccurdy MD, [facility] - Urology Compassionate Specialist Care for the Genitourinary System Coding Level of Care Code Est Pt Level 3 (44822) Complex EM visit Add On G2211 Diagnoses Renal calculi N20.0
== END 2025-03-10 14:35 | disposition home or self-care (01) ==
LOC: HO.HUSH 13:23
PROVIDERS: PCP Internal Medicine; Visit Provider Urology
DX: N20.0 Calculus of kidney (principal)
CPT/HCPCS: 99213; G2211

== ENCOUNTER 2025-04-13 16:53 | Outpatient (AMB) | payer OTHER, SELFPAY ==
[2025-04-13 16:58] VITALS: BP 130/76; PULSE 65; O2SAT 94; BMI 32.1
--- NOTE | 2025-04-13 16:58 | A.OFFPC_ITS ---
Vital Signs 04/13/25 16:58 Height 5 ft 7 in Weight 205 lb BMI 32.1 BP 130/76 Blood Pressure Location Lt brachial Position Sitting Pulse 65 Pulse Source Pulse Oximeter Pulse Oximetry (%) 94 Oxygen Delivery Method Room Air Intake Visit Reasons: Asthma Allergies No Known Allergies Allergy (Verified 04/13/25 16:58) Medication List - Last Reconciled 04/13/25 by Diogenes Jin MD albuterol sulfate 90 mcg/actuation (Ventolin HFA) 2 puffs inhalation Q6H PRN allopurinol 100 mg PO DAILY 90 days budesonide 90 mcg/actuation (Pulmicort Flexhaler) 1 inh inhalation BID montelukast (Singulair) 10 mg PO BEDTIME naproxen 500 mg PO BID PRN 7 days oxycodone 5 mg PO Q8H PRN 3 days pyridoxine (vitamin B6) 50 mg PO DAILY 90 days Tobacco use date assessed: 08/18/24 Dental Screening Dental Screen Date: 08/18/24 [facility] Medical History Tubular adenoma of colon Asthma Renal calculi Closed left ankle fracture Surgical History Hx of cystoscopy H/O colonoscopy Family History Mother No problems noted. Father Diabetes Prostate cancer Sister No problems noted. Father Prostate cancer Social History Housing: House Are you a primary career development counselor to a significant other at home: No Do you presently have visiting nurse or other home services: No Alcohol intake: current Alcohol intake frequency: does not drink Patient Tobacco Use Status: Never used Tobacco Tobacco use type: Cigarette e-Cigarette/Vaping Use: Never Used Second Hand Smoke Exposure: No service: No Current occupational status: employed Cognitive needs: No Hearing needs: No Vision needs: Yes Questionnaire PHQ-9 Over the last 2 weeks, how often have you been bothered by any of the following problems? 1. Little interest or pleasure in doing things: not at all 2. Feeling down, depressed, or hopeless: not at all 3. Trouble falling or staying asleep, or sleeping too much: not at all 4. Feeling tired or having little energy: not at all 5. Poor appetite or overeating: not at all 6. Feeling bad about yourself - or that you are a failure or have let yourself or your family down: not at all 7. Trouble concentrating on things, such as reading the newspaper or watching television: not at all 8. Moving or speaking so slowly that other people could have noticed. Or the opposite - being so fidgety or restless that you have been moving around a lot more than usual: not at all 9. Thoughts that you would be better off or of hurting yourself in some way: not at all Total score: 0 Depression Screening Interpretation: Negative Depression Screening Done: Yes Source: Developed by Drs. Gumaro Maldonado, Veronica Love, Blaise Humphrey and colleagues, with an educational eric from [employer]. Thrive Questionnaire Date Thrive assessed: 04/13/25 I am a: Patient What is your living situation today?: I have a steady place to live Within the past 12 months, did the food you bought not last and you didn't have the money to get more?: Never true Within the past 12 months, did you worry whether your food would run out before you got money to buy more?: Never true Do you have trouble paying for medicines?: No Do you have trouble getting transportation to medical appointments?: No Do you have trouble paying your heating and electricity bill?: No Do you have trouble taking care of your child, family member or friend?: No Do you have trouble with day-to-day activities such as bathing, preparing meals, shopping, managing finances, etc.?: No Are you currently unemployed and looking for a job?: No Are you interested in more education?: I choose not to answer this question Please select the resources that you would like help with: None Currently or been in a relationship where the following occur: I choose not to answer THRIVE Score: 0 AUDIT C Alcohol Use Questionnaire (AUDIT-C) 1. How often do you have a drink containing alcohol?: Monthly or less 2. How many drinks containing alcohol do you have on a typical day when you are drinking?: 1 or 2 3. How often do you have six or more drinks on one occasion?: Never Total Score: 1 TYE-7 AMB Questionnaire TYE-7 Date TYE - 7 assessed: 08/18/24 Source: Developed by Drs. Gumaro Maldonado, Veronica Love, Blaise Humphrey and colleagues, with an educational eric from [employer]. Physical exam (Primary Care) Vital Signs: Last Vital Signs Pulse 65 04/13/25 16:58 BP 130/76 04/13/25 16:58 Pulse Ox 94 04/13/25 16:58 Oxygen Delivery Method Room Air 04/13/25 16:58 BMI result Body Mass Index 32.1 Tobacco/Smoking Status: Tobacco use Status Tobacco use date assessed 08/18/24 04/13/25 17:02 Patient Tobacco Use Status Never used Tobacco 04/13/25 17:02 Tobacco use type Cigarette 04/13/25 17:02 e-Cigarette/Vaping Use Never Used 04/13/25 17:02 PHQ-9: PHQ-9 Score PHQ-9: Total score 0 04/13/25 17:39 Depression Screening Interpretation: Negative Thrive Assessment: Date of Thrive Assessment Date Thrive assessed 04/13/25 04/13/25 17:02 Currently or been in a relationship where the following occur: I choose not to answer Const General: alert; No acute distress Eyes Conjunctivae: conjunctivae normal Resp Auscultation: clear to auscultation bilaterally Cardio Rate: regular rate Rhythm: regular rhythm GI Inspection: Yes normal to inspection Extrem General: Yes normal to inspection and No edema Office Procedures Flu Questionnaire Does the patient have a severe egg allergy?: No Does the patient have severe life threatening allergies?: No Does the patient have a fever or illness today?: No Has the patient ever had Guillain-Mcfall Syndrome?: No Has the patient ever had any past reaction to a flu shot?: No Immunizations Fluarix [id number] (PF) 45 mcg (15 mcg x 3)/0.5 mL IM syringe Performing Provider: Diogenes Jin MD [facility] Administered by: Yesenia Layton CMA on 04/13/25 17:58 Dose Route Admin Location Dispensed Lot Number Expiration Date [facility] Alcohol Law Enforcement Agent 0.5 mL IM Left Deltoid 0.5 mL [id number] 12/01/25 [id number] [employer] VIS Given Date VIS Provided VIS Publication Date 04/13/25 Single Vaccine 24 Eligibility Eligibility Date Funding Source Not [facility] [employer] Eligible 04/13/25 Private Coding Level of Care Code Est Pt Level 4 (62145) Complex EM visit Add On G2211 Diagnoses Obesity (BMI 30-39.9) E66.9 LFT elevation R79.89 Tubular adenoma of colon D12.6 Renal calculi N20.0 Mild intermittent asthma, unspecified whether complicated J45.20 Asthma severity: mild Asthma persistence: intermittent Asthma complication type: unspecified Plantar fasciitis, left M72.2 Assessment & Plan Assessment & Plan (1) Obesity (BMI 30-39.9): Code(s): E66.9 - Obesity, unspecified Category: Medical Plan: Diet and exercise (2) LFT elevation: Code(s): R79.89 - Other specified abnormal findings of blood chemistry Category: Medical Plan: Continue to monitor liver function tests had an ultrasound done showing left liver cyst (3) Tubular adenoma of colon: Code(s): D12.6 - Benign neoplasm of colon, unspecified Category: Medical Plan: Patient is reminded about colonoscopy (4) Renal calculi: Comment: Bilateral September 2022, extraction April 2024, b/l 06/2024, September 2024 Code(s): N20.0 - Calculus of kidney Category: Medical Plan: Keep well hydrated. Panel follows up with urology has had extraction in November 2024 (5) Asthma: Comment: PFT September 2022 Code(s): J45.909 - Unspecified asthma, uncomplicated Category: Medical Qualifiers: Asthma severity: mild Asthma persistence: intermittent Asthma complication type: unspecified Qualified Code(s): J45.20 - Mild intermittent asthma, uncomplicated Plan: Continue with albuterol inhaler Pulmicort Singulair (6) Plantar fasciitis, left: Code(s): M72.2 - Plantar fascial fibromatosis Category: Medical Plan History of Present Illness The patient is a 59-year-old obese male presenting for a follow-up visit with a history of nephrolithiasis, tubular adenoma of the colon, and asthma. He was last seen in August 2024. For his nephrolithiasis, he is followed by urology and is currently under surveillance. He underwent a right ureteroscopy and laser lithotripsy in May 2024. An ultrasound in February showed left renal calculi, with the largest stone being 7 mm. The stones are identified as calcium oxalate. Procedures in November 2024 included cystoscopy with right ureteric orifice dilatation, left ureteric orifice dilatation, laser lithotripsy with vacuum aspiration, and left stent placement. Regarding his gastrointestinal history, he has a history of tubular adenoma of the colon, with his last colonoscopy performed in 2023 and another one due this year. An abdominal ultrasound revealed a liver cyst. Blood work from August 2024 showed a normal blood count, electrolytes, renal function, blood sugar, and thyroid function. Labs were notable for elevated liver function tests, good cholesterol, and low vitamin D. His asthma is managed with an albuterol inhaler, Pulmicort, and Singulair. Health Maintenance - The patient was reminded that a colonoscopy is due this year for surveillance of a tubular adenoma found in 2023. - He was advised to maintain good hydration. - The plan includes continued monitoring of liver function tests. - Diet and exercise were recommended. Social History - Diet and exercise were discussed. Review of Systems Physical Exam Results - Labs (August 2024): Showed normal blood count, electrolytes, renal function, blood sugar, and thyroid function with elevated liver function tests, good cholesterol, and low vitamin D. - Abdominal Ultrasound (date unspecified): Revealed a liver cyst. - Ultrasound (February 27): Showed left renal calculi, with the largest stone measuring 7 mm. Plan Patient was informed and verbally consented to the use of an ambient scribe for clinic note documentation during this visit. 1. Nephrolithiasis The patient will continue to follow up with urology for ongoing surveillance. He has been advised to maintain good hydration. 2. History Of Tubular Adenoma Of Colon The patient was reminded that a colonoscopy is due this year for surveillance. 3. Elevated Liver Enzymes And Hepatic Cyst Will continue to monitor liver function tests. Diet and exercise were recommended. 4. Asthma Continue current regimen of albuterol inhaler, Pulmicort, and Singulair. Discussion Notes I reviewed the patient's history, including his nephrolithiasis managed by urology, which involved a right ureteroscopy in May 2024 and left-sided procedures with stent placement in November 2024. I advised him to maintain good hydration and continue his urology follow-ups. We discussed his lab results from August 2024, noting the elevated liver function tests, and I informed him of the plan to continue monitoring these. I reminded him that his surveillance colonoscopy is due this year given his history of a tubular adenoma. We also confirmed his asthma management plan to continue with his albuterol, Pulmicort, and Singulair inhalers. Finally, we discussed the importance of diet and exercise. Patient Instructions - Continue to follow up with your urology specialist for your kidney stones. - Make sure to drink plenty of water to stay well-hydrated. - Please schedule your colonoscopy, as it is due this year. - We will continue to check your liver with blood tests. - Continue using your asthma medications (albuterol, Pulmicort, Singulair) as prescribed. - It is recommended that you focus on diet and exercise. Orders: Orders Influenza [id number] Immunization Today Z23 - Encounter for immunization Referrals Podiatry Referral M72.2 - Plantar fascial fibromatosis Medications: New albuterol sulfate 2.5 mg (3 mL) inhalation QID PRN 90 mL 0RF shortness of breath or wheezing J45.20 - Mild intermittent asthma, uncomplicated nebulizers (Aeroneb Go Nebulizer) As directed 1 ea 0RF J45.20 - Mild intermittent asthma, uncomplicated Refilled montelukast (Singulair) 10 mg PO BEDTIME 30 tabs 3RF J45.20 - Mild intermittent asthma, uncomplicated budesonide 90 mcg/actuation (Pulmicort Flexhaler) 1 inh inhalation BID 3 inserts 11RF albuterol sulfate 90 mcg/actuation (Ventolin HFA) 2 puffs inhalation Q6H PRN 8.5 grams 0RF bronchospasm J45.909 - Unspecified asthma, uncomplicated Discontinued oxycodone Partial Fill upon patient request. Discontinued Reason: Patient Completed Course 5 mg PO Q8H 3 days PRN 8 tabs 0RF pain
== END 2025-04-13 18:01 | disposition home or self-care (01) ==
LOC: HO.HMCH 16:54
PROVIDERS: PCP Internal Medicine; Visit Provider Internal Medicine
DX: J45.20 Mild intermittent asthma, uncomplicated (principal); E66.9 Obesity, unspecified; Z68.32 Body mass index [BMI] 32.0-32.9, adult; R79.89 Other specified abnormal findings of blood chemistry; D12.6 Benign neoplasm of colon, unspecified; N20.0 Calculus of kidney; M72.2 Plantar fascial fibromatosis; Z23 Encounter for immunization

== ENCOUNTER → 2025-04-13 16:53 | Outpatient (BNVA) | payer OTHER, SELFPAY | PROVIDERS: PCP Internal Medicine; Visit Provider Internal Medicine | DX: Z23 Encounter for immunization (principal); E66.9 Obesity, unspecified; R79.89 Other specified abnormal findings of blood chemistry; D12.6 Benign neoplasm of colon, unspecified; N20.0 Calculus of kidney; J45.20 Mild intermittent asthma, uncomplicated; M72.2 Plantar fascial fibromatosis; Z68.32 Body mass index [BMI] 32.0-32.9, adult | CPT/HCPCS: 90471; 90656; 96127 ==